=== PATIENT | female | born 1945 | race Caucasian/White ===

== ENCOUNTER → 2021-06-11 | Day surgery (SDC) | payer MEDICARE ==
[2021-06-10 09:55] LABS: BASOPHILS % 0.6 % (0.0-1.0); EOSINOPHILS # (AUTO) 0.1 (0.0-0.4); EOSINOPHILS % 1.7 % (0.0-6.0); HEMOGLOBIN 13.2 g/dL (12.0-16.0); LYMPHOCYTES # (AUTO) 1.8 (1.0-3.2); LYMPHOCYTES % 27.5 % (18.0-39.1); MEAN CORPUSCULAR HEMOGLOBIN 28.3 pg (28-32); MEAN CORPUSCULAR HGB CONC 32.2 g/dL (31-35); MONOCYTES # (AUTO) 0.7 (0.2-0.8); MONOCYTES % 10.4 % (4.4-11.3); NEUTROPHILS # (AUTO) 3.9 (2.1-6.9); NEUTROPHILS % 59.5 % (38.7-80.0); PLATELET COUNT 183 x10e3/uL (140-360); RED BLOOD COUNT 4.66 x10e6/uL (3.6-5.1); RED CELL DISTRIBUTION WIDTH 12.7 % (11.7-14.4)
[2021-06-10 10:22] LABS: ANION GAP 13.5 mmol/L (8-16); CREATININE, SERUM 0.96 mg/dL (0.57-1.11); POTASSIUM 3.5 mmol/L (3.5-5.1)
[~2021-06-11] MED LIST: ACETAMINOPHEN/CODEINE 300MG - 30MG TAB ONE; DIOVAN80 MG PO; FENTANYL CITRATE/PF 100MCG/2 ML INJ ONE; HAIR SKIN AND NAILS PO; HYDROCHLOROTHIA25 MG PO; MULTI-VITAMIN1 EACH PO; Morphine 4mg Syringe 4 MG/ML INJ ONE; ONDANSETRON HCL INJ 2MG/ML 2ML 2 MG/ML VIAL ONE; PRAVASTATIN SOD20 MG; SODIUM CHLORIDE 0.9% 50ML 100 ML ONE; TYLENOL325 M2 PO; VITAMIN B-121000 MCG PO
[2021-06-11 10:50] VITALS: BP 157/83
== END | disposition home or self-care (01) ==
LOC: OR 05:23
PROVIDERS: ATTEND Specialist
DX: S82.042A Displaced comminuted fracture of left patella, initial encounter for closed fracture (principal); I49.3 Ventricular premature depolarization; I10 Essential (primary) hypertension; E78.5 Hyperlipidemia, unspecified; W18.39XA Other fall on same level, initial encounter; Y92.009 Unspecified place in unspecified non-institutional (private) residence as the place of occurrence of the external cause; Z01.810 Encounter for preprocedural cardiovascular examination; Z01.812 Encounter for preprocedural laboratory examination; Z01.818 Encounter for other preprocedural examination; Z20.822 Contact with and (suspected) exposure to COVID-19; Z79.899 Other long term (current) drug therapy; Z68.33 Body mass index [BMI] 33.0-33.9, adult
CPT/HCPCS: 27524; 36415; 71046; 76000; 80048; 85025; 93005; C1713; J0690; J2270; J2405; J3010; U0002

== ENCOUNTER 2021-07-20 11:47 | Inpatient (IN) | payer MEDICARE ==
[~2021-07-20] VITALS: Ht 200.7 cm; Wt 79.4 kg
[~2021-07-20 11:47] MED LIST changes: -ACETAMINOPHEN/CODEINE 300MG - 30MG TAB ONE; -FENTANYL CITRATE/PF 100MCG/2 ML INJ ONE; -Morphine 4mg Syringe 4 MG/ML INJ ONE; -ONDANSETRON HCL INJ 2MG/ML 2ML 2 MG/ML VIAL ONE; -SODIUM CHLORIDE 0.9% 50ML 100 ML ONE
[2021-07-20] MEDS ORDERED: SODIUM CHLORIDE 0.45% 1,000 ML IV SCH (19:45)
[2021-07-20 20:00] VITALS: BP 141/61
[2021-07-20 20:33] LABS: BASOPHILS % 0.2 % (0.0-1.0); EOSINOPHILS % 0.5 % (0.0-6.0); HEMATOCRIT 28.8 % (34.2-44.1); HEMOGLOBIN 8.7 g/dL (12.0-16.0); LYMPHOCYTES # (AUTO) 1.7 (1.0-3.2); LYMPHOCYTES % 28.9 % (18.0-39.1); MEAN CORPUSCULAR HEMOGLOBIN 26.5 pg (28-32); MEAN CORPUSCULAR HGB CONC 30.2 g/dL (31-35); MEAN CORPUSCULAR VOLUME 87.8 fL (81-99); MONOCYTES # (AUTO) 0.4 (0.2-0.8); MONOCYTES % 6.3 % (4.4-11.3); NEUTROPHILS # (AUTO) 3.6 (2.1-6.9); NEUTROPHILS % 62.7 % (38.7-80.0); PLATELET COUNT 156 x10e3/uL (140-360); RED BLOOD COUNT 3.28 x10e6/uL (3.6-5.1); RED CELL DISTRIBUTION WIDTH 14.5 % (11.7-14.4)
[2021-07-20 20:52] LABS: ALBUMIN 1.7 g/dL (3.5-5.0); ALBUMIN/GLOBULIN RATIO 0.4 (0.8-2.0); ANION GAP 13.1 mmol/L (8-16); CALCIUM 8.8 mg/dL (8.4-10.2); CREATININE, SERUM 0.6 mg/dL (0.57-1.11); POTASSIUM 3.1 mmol/L (3.5-5.1)
[2021-07-20 20:59] VITALS: BP 141/61
[2021-07-20] MEDS ORDERED: ONDANSETRON HCL INJ 2MG/ML 2ML 2 MG/ML VIAL IV PRN (21:00)
[2021-07-20] MEDS ORDERED: HYDRALAZINE HCL 20 MG/ML VIAL IV PRN (21:00)
[2021-07-20] MEDS ORDERED: POLYETHYLENE GLYCOL 3350 17 GM PACK PO PRN (21:00)
[2021-07-20] MEDS ORDERED: ACETAMINOPHEN/CODEINE 300MG - 30MG TAB PO PRN (21:15)
[2021-07-20] MEDS: Vancomycin IV 1 GM in SODIUM CHLORIDE 0.9% 250ML 250 ML IV SCH (21:30)
[2021-07-20] MEDS: HYDROCODONE/APAP 5MG-325MG TAB PO PRN (22:05)
[2021-07-20] MEDS: MELATONIN 3 MG TAB PO PRN (22:06)
[2021-07-20 23:11] LABS: CLARITY,URINE CLOUDY (CLEAR); COLOR,URINE YELLOW (YELLOW)
[2021-07-20 23:12] LABS: KETONES,URINE 2+ (NEGATIVE); LEUKOCYTE ESTERASE ,URINE NEGATIVE (NEGATIVE); NITRITE,URINE NEGATIVE (NEGATIVE); PROTEIN,URINE DIPSTICK 1+ (NEGATIVE); URINE UROBILINOGEN 4 mg/dL (0.2 - 1)
[2021-07-20 23:21] LABS: BACTERIA,URINE MANY /HPF; EPITHELIAL CELLS,URINE MANY /LPF; MUCUS,URINE FEW (RARE); TRANSITIONAL EPI CELLS,URINE FEW
[2021-07-20] MEDS: SODIUM CHLORIDE 0.9% 1000ML 1,000 ML IV SCH (23:49)
[2021-07-21] VITALS (9 sets, daily range): BP systolic 119–141; BP diastolic 52–69
[2021-07-21] MEDS: PIPERACILLIN/TAZOBACTAM 3.375 GM in SODIUM CHLORIDE 0.9% 50ML 50 ML IV SCH ×5 (02:50→18:20)
[2021-07-21 05:17] LABS: BASOPHILS % 0.2 % (0.0-1.0); EOSINOPHILS # (AUTO) 0.1 (0.0-0.4); EOSINOPHILS % 1.1 % (0.0-6.0); HEMATOCRIT 26.3 % (34.2-44.1); HEMOGLOBIN 8.2 g/dL (12.0-16.0); LYMPHOCYTES # (AUTO) 1.6 (1.0-3.2); LYMPHOCYTES % 32.9 % (18.0-39.1); MEAN CORPUSCULAR HGB CONC 31.2 g/dL (31-35); MEAN CORPUSCULAR VOLUME 86.5 fL (81-99); MONOCYTES # (AUTO) 0.4 (0.2-0.8); NEUTROPHILS # (AUTO) 2.7 (2.1-6.9); NEUTROPHILS % 56.1 % (38.7-80.0); PLATELET COUNT 145 x10e3/uL (140-360); RED BLOOD COUNT 3.04 x10e6/uL (3.6-5.1); RED CELL DISTRIBUTION WIDTH 14.3 % (11.7-14.4)
[2021-07-21 05:40] LABS: ALBUMIN 1.6 g/dL (3.5-5.0); ALBUMIN/GLOBULIN RATIO 0.4 (0.8-2.0); CALCIUM 8.6 mg/dL (8.4-10.2); CHOL/HDL RATIO 5.7 (3.0-3.6); CREATININE, SERUM 0.58 mg/dL (0.57-1.11); MAGNESIUM 1.9 MG/DL (1.3-2.1); PHOSPHORUS 2.2 MG/DL (2.3-4.7)
[2021-07-21 06:07] LABS: THYROID STIMULATING HORMONE 2.82 uIU/mL (0.350-4.940)
[2021-07-21] MEDS ORDERED: CYCLOBENZAPRIN7.5 MG (07:57)
[2021-07-21] MEDS ORDERED: BENZONATATE150 MG (08:03)
[2021-07-21] MEDS ORDERED: KETOROLAC60 MG/2 ML IV (08:04)
[2021-07-21] MEDS: Vancomycin IV 1 GM in SODIUM CHLORIDE 0.9% 250ML 250 ML IV SCH ×2 (09:23→23:06)
[2021-07-21] MEDS: DOCUSATE SODIUM 100 MG CAP PO SCH ×2 (09:23→18:20)
[2021-07-21] MEDS: FAMOTIDINE 20 MG TAB PO SCH ×2 (09:23→18:20)
[2021-07-21] MEDS ORDERED: POTASSIUM CHLORIDE 20 MEQ TAB CR PO ONE (10:00)
[2021-07-21] MEDS: VALSARTAN 80 MG TAB PO SCH (13:55)
[2021-07-21] MEDS: HYDROCHLOROTHIAZIDE 25 MG TAB PO SCH (13:56)
[2021-07-21] MEDS: MULTIVITAMINS/MINERALS TAB PO SCH (13:56)
[2021-07-21] MEDS: CYANOCOBALAMIN 1,000 MCG TAB PO SCH (13:56)
[2021-07-21] MEDS: SODIUM CHLORIDE 0.9% 1000ML 1,000 ML IV SCH (13:57)
[2021-07-21] MEDS: PRAVASTATIN 20 MG TAB PO SCH (20:37)
[2021-07-21] MEDS: HYDROCODONE/APAP 5MG-325MG TAB PO PRN (20:38)
[2021-07-22] VITALS (7 sets, daily range): BP systolic 129–141; BP diastolic 54–66
[2021-07-22] MEDS: SODIUM CHLORIDE 0.9% 1000ML 1,000 ML IV SCH ×2 (00:40→13:42)
[2021-07-22] MEDS: PIPERACILLIN/TAZOBACTAM 3.375 GM in SODIUM CHLORIDE 0.9% 50ML 50 ML IV SCH ×4 (00:40→18:12)
[2021-07-22 05:06] LABS: BASOPHILS % 0.5 % (0.0-1.0); EOSINOPHILS # (AUTO) 0.1 (0.0-0.4); EOSINOPHILS % 1.6 % (0.0-6.0); HEMATOCRIT 26.9 % (34.2-44.1); HEMOGLOBIN 8.3 g/dL (12.0-16.0); LYMPHOCYTES # (AUTO) 1.6 (1.0-3.2); LYMPHOCYTES % 41.5 % (18.0-39.1); MEAN CORPUSCULAR HEMOGLOBIN 26.9 pg (28-32); MEAN CORPUSCULAR HGB CONC 30.9 g/dL (31-35); MEAN CORPUSCULAR VOLUME 87.1 fL (81-99); MONOCYTES # (AUTO) 0.3 (0.2-0.8); MONOCYTES % 6.6 % (4.4-11.3); NEUTROPHILS # (AUTO) 1.8 (2.1-6.9); NEUTROPHILS % 47.1 % (38.7-80.0); PLATELET COUNT 158 x10e3/uL (140-360); RED BLOOD COUNT 3.09 x10e6/uL (3.6-5.1); RED CELL DISTRIBUTION WIDTH 14.5 % (11.7-14.4)
[2021-07-22 05:30] LABS: CALCIUM 8.5 mg/dL (8.4-10.2); CREATININE, SERUM 0.59 mg/dL (0.57-1.11); PHOSPHORUS 2.5 MG/DL (2.3-4.7)
[2021-07-22] MEDS ORDERED: ONDANSETRON HCL 4 MG ORAL DISINTEGRATING TAB PO PRN (08:00)
[2021-07-22] MEDS ORDERED: POTASSIUM CHLORIDE 20 MEQ TAB CR PO ONE (08:30)
[2021-07-22] MEDS: FAMOTIDINE 20 MG TAB PO SCH ×2 (08:41→18:12)
[2021-07-22] MEDS: DOCUSATE SODIUM 100 MG CAP PO SCH ×2 (08:41→18:12)
[2021-07-22] MEDS: HYDROCHLOROTHIAZIDE 25 MG TAB PO SCH (08:43)
[2021-07-22] MEDS: VALSARTAN 80 MG TAB PO SCH (08:43)
[2021-07-22] MEDS: CYANOCOBALAMIN 1,000 MCG TAB PO SCH (08:44)
[2021-07-22] MEDS: MULTIVITAMINS/MINERALS TAB PO SCH (08:44)
[2021-07-22] MEDS: Vancomycin IV 1 GM in SODIUM CHLORIDE 0.9% 250ML 250 ML IV SCH ×2 (08:45→21:16)
[2021-07-22] MEDS: HYDROCODONE/APAP 5MG-325MG TAB PO PRN (11:29)
[2021-07-22] MEDS: COLLAGENASE 5 GM TUBE TOP SCH (11:53)
[2021-07-22] MEDS: PRAVASTATIN 20 MG TAB PO SCH (21:16)
[2021-07-23] VITALS (8 sets, daily range): BP systolic 129–152; BP diastolic 61–74
[2021-07-23] MEDS: PIPERACILLIN/TAZOBACTAM 3.375 GM in SODIUM CHLORIDE 0.9% 50ML 50 ML IV SCH ×2 (00:37→06:55)
[2021-07-23] MEDS: SODIUM CHLORIDE 0.9% 1000ML 1,000 ML IV SCH ×2 (02:09→16:38)
[2021-07-23 05:03] LABS: BASOPHILS % 0.5 % (0.0-1.0); EOSINOPHILS # (AUTO) 0.1 (0.0-0.4); HEMATOCRIT 26.6 % (34.2-44.1); HEMOGLOBIN 8.2 g/dL (12.0-16.0); LYMPHOCYTES # (AUTO) 1.6 (1.0-3.2); LYMPHOCYTES % 38.3 % (18.0-39.1); MEAN CORPUSCULAR HEMOGLOBIN 26.5 pg (28-32); MEAN CORPUSCULAR HGB CONC 30.8 g/dL (31-35); MEAN CORPUSCULAR VOLUME 85.8 fL (81-99); MONOCYTES # (AUTO) 0.4 (0.2-0.8); MONOCYTES % 8.8 % (4.4-11.3); NEUTROPHILS # (AUTO) 1.9 (2.1-6.9); NEUTROPHILS % 46.7 % (38.7-80.0); PLATELET COUNT 151 x10e3/uL (140-360); RED CELL DISTRIBUTION WIDTH 14.7 % (11.7-14.4)
[2021-07-23 05:28] LABS: ALANINE AMINOTRANSFERASE 31 IU/L (0-55); ALBUMIN 1.6 g/dL (3.5-5.0); ALBUMIN/GLOBULIN RATIO 0.4 (0.8-2.0); ALKALINE PHOSPHATASE 98 IU/L (40-150); ANION GAP 15.9 mmol/L (8-16); CALCIUM 8.3 mg/dL (8.4-10.2); CARBON DIOXIDE 23 mmol/L (22-29); CHLORIDE 104 mmol/L (98-107); CREATININE, SERUM 0.59 mg/dL (0.57-1.11); EST GLOMERULAR FILTRATION RATE 99 ML/MIN (60-); GLUCOSE 87 mg/dL (74-118); SODIUM 140 mmol/L (136-145)
[2021-07-23 05:33] LABS: BUN/CREATININE RATIO 8 (6-25)
[2021-07-23 05:44] LABS: BLOOD UREA NITROGEN < 5 mg/dL (7-26)
[2021-07-23 05:47] LABS: POTASSIUM 2.9 mmol/L (3.5-5.1)
[2021-07-23] MEDS ORDERED: POTASSIUM CHLORIDE 20 MEQ TAB CR PO SCH (09:00)
[2021-07-23] MEDS: DOCUSATE SODIUM 100 MG CAP PO SCH ×2 (10:19→16:38)
[2021-07-23] MEDS: FAMOTIDINE 20 MG TAB PO SCH ×2 (10:19→16:38)
[2021-07-23] MEDS: MULTIVITAMINS/MINERALS TAB PO SCH (10:20)
[2021-07-23] MEDS: CYANOCOBALAMIN 1,000 MCG TAB PO SCH (10:20)
[2021-07-23] MEDS: VALSARTAN 80 MG TAB PO SCH (10:20)
[2021-07-23] MEDS: HYDROCHLOROTHIAZIDE 25 MG TAB PO SCH (10:20)
[2021-07-23] MEDS: COLLAGENASE 5 GM TUBE TOP SCH (10:20)
[2021-07-23] MEDS: Vancomycin IV 1 GM in SODIUM CHLORIDE 0.9% 250ML 250 ML IV SCH (10:59)
[2021-07-23] MEDS: HYDROCODONE/APAP 5MG-325MG TAB PO PRN (11:00)
[2021-07-23] MEDS ORDERED: LIDOCAINE HCL 1% LOCAL INJ 20 ML VIAL ONE (16:34)
[2021-07-23 17:10] LABS: BODY FLUID APPEARANCE TURBID; BODY FLUID COLOR RED; BODY FLUID TYPE SYNOVIAL
[2021-07-23 17:21] LABS: RBC,BODY FLUID 122000 cells/uL; WBC,BODY FLUID 332 cells/uL
[2021-07-23] MEDS: RIVAROXABAN 10 MG TABLET PO SCH (17:41)
[2021-07-23 17:58] LABS: LYMPHOCYTES,BODY FLUID 10 %; MONO/MACROPHG,BODY FLUID 5 %; NEUTROPHILS,BODY FLUID 85 %
[2021-07-23] MEDS: PRAVASTATIN 20 MG TAB PO SCH (21:51)
[2021-07-24] VITALS (8 sets, daily range): BP systolic 141–157; BP diastolic 49–70
[2021-07-24] MEDS: SODIUM CHLORIDE 0.9% 1000ML 1,000 ML IV SCH ×4 (05:15→21:29)
[2021-07-24 06:08] LABS: BASOPHILS % 0.4 % (0.0-1.0); EOSINOPHILS # (AUTO) 0.1 (0.0-0.4); EOSINOPHILS % 1.2 % (0.0-6.0); HEMATOCRIT 28.6 % (34.2-44.1); LYMPHOCYTES # (AUTO) 1.9 (1.0-3.2); LYMPHOCYTES % 39.4 % (18.0-39.1); MEAN CORPUSCULAR HEMOGLOBIN 26.5 pg (28-32); MEAN CORPUSCULAR HGB CONC 31.5 g/dL (31-35); MEAN CORPUSCULAR VOLUME 84.4 fL (81-99); MONOCYTES # (AUTO) 0.4 (0.2-0.8); MONOCYTES % 8.2 % (4.4-11.3); NEUTROPHILS # (AUTO) 2.3 (2.1-6.9); NEUTROPHILS % 46.7 % (38.7-80.0); PLATELET COUNT 151 x10e3/uL (140-360); RED BLOOD COUNT 3.39 x10e6/uL (3.6-5.1)
[2021-07-24 06:52] LABS: ANION GAP 17.3 mmol/L (8-16); CALCIUM 8.7 mg/dL (8.4-10.2); CARBON DIOXIDE 23 mmol/L (22-29); CHLORIDE 101 mmol/L (98-107); CREATININE, SERUM 0.57 mg/dL (0.57-1.11); EST GLOMERULAR FILTRATION RATE 103 ML/MIN (60-); GLUCOSE 75 mg/dL (74-118); POTASSIUM 3.3 mmol/L (3.5-5.1); SODIUM 138 mmol/L (136-145)
[2021-07-24 06:54] LABS: BUN/CREATININE RATIO 9 (6-25)
[2021-07-24 07:09] LABS: BLOOD UREA NITROGEN < 5 mg/dL (7-26)
[2021-07-24] MEDS: FAMOTIDINE 20 MG TAB PO SCH ×2 (08:43→16:42)
[2021-07-24] MEDS: DOCUSATE SODIUM 100 MG CAP PO SCH ×2 (08:43→16:42)
[2021-07-24] MEDS: CYANOCOBALAMIN 1,000 MCG TAB PO SCH (08:44)
[2021-07-24] MEDS: VALSARTAN 80 MG TAB PO SCH (08:44)
[2021-07-24] MEDS: HYDROCHLOROTHIAZIDE 25 MG TAB PO SCH (08:44)
[2021-07-24] MEDS: MULTIVITAMINS/MINERALS TAB PO SCH (08:44)
[2021-07-24] MEDS: COLLAGENASE 5 GM TUBE TOP SCH (09:55)
[2021-07-24] MEDS ORDERED: BENZOCAINE 20% SPR 60 ML CAN ONE (11:49)
[2021-07-24] MEDS ORDERED: SODIUM CHLORIDE 0.9% 1000ML 1,000 ML ONE (11:49)
[2021-07-24] MEDS ORDERED: PROPOFOL IV EMULSION 10 MG/ML 20 ML VIAL ONE (12:34)
[2021-07-24] MEDS ORDERED: POVIDONE IODINE 0.05% 0.05 % ML PO ONE (12:34)
[2021-07-24] MEDS: RIVAROXABAN 10 MG TABLET PO SCH (16:42)
[2021-07-24] MEDS: HYDROCODONE/APAP 5MG-325MG TAB PO PRN (18:01)
[2021-07-24] MEDS: PRAVASTATIN 20 MG TAB PO SCH (21:29)
[2021-07-25] VITALS (7 sets, daily range): BP systolic 119–145; BP diastolic 57–67
[2021-07-25] MEDS: SODIUM CHLORIDE 0.9% 1000ML 1,000 ML IV SCH ×2 (03:43→06:34)
[2021-07-25 05:52] LABS: BASOPHILS % 0.4 % (0.0-1.0); EOSINOPHILS # (AUTO) 0.1 (0.0-0.4); EOSINOPHILS % 0.9 % (0.0-6.0); HEMATOCRIT 29.6 % (34.2-44.1); HEMOGLOBIN 9.1 g/dL (12.0-16.0); LYMPHOCYTES # (AUTO) 2.2 (1.0-3.2); MEAN CORPUSCULAR HEMOGLOBIN 26.4 pg (28-32); MEAN CORPUSCULAR HGB CONC 30.7 g/dL (31-35); MEAN CORPUSCULAR VOLUME 85.8 fL (81-99); MONOCYTES # (AUTO) 0.4 (0.2-0.8); NEUTROPHILS # (AUTO) 2.7 (2.1-6.9); NEUTROPHILS % 48.6 % (38.7-80.0); PLATELET COUNT 147 x10e3/uL (140-360); RED BLOOD COUNT 3.45 x10e6/uL (3.6-5.1); RED CELL DISTRIBUTION WIDTH 15.2 % (11.7-14.4)
[2021-07-25 06:21] LABS: ALANINE AMINOTRANSFERASE 26 IU/L (0-55); ALBUMIN 1.7 g/dL (3.5-5.0); ALBUMIN/GLOBULIN RATIO 0.4 (0.8-2.0); ALKALINE PHOSPHATASE 84 IU/L (40-150); ANION GAP 17.9 mmol/L (8-16); BLOOD UREA NITROGEN < 5 mg/dL (7-26); CALCIUM 8.8 mg/dL (8.4-10.2); CARBON DIOXIDE 26 mmol/L (22-29); CHLORIDE 99 mmol/L (98-107); CREATININE, SERUM 0.57 mg/dL (0.57-1.11); EST GLOMERULAR FILTRATION RATE 103 ML/MIN (60-); GLUCOSE 87 mg/dL (74-118); SODIUM 140 mmol/L (136-145)
[2021-07-25 06:27] LABS: BUN/CREATININE RATIO 9 (6-25)
[2021-07-25 06:29] LABS: POTASSIUM 2.9 mmol/L (3.5-5.1)
[2021-07-25] MEDS ORDERED: POTASSIUM CHLORIDE 20 MEQ TAB CR PO ONE (09:00)
[2021-07-25] MEDS: DOCUSATE SODIUM 100 MG CAP PO SCH ×2 (09:40→16:03)
[2021-07-25] MEDS: VALSARTAN 80 MG TAB PO SCH (09:40)
[2021-07-25] MEDS: FAMOTIDINE 20 MG TAB PO SCH ×2 (09:40→16:03)
[2021-07-25] MEDS: HYDROCHLOROTHIAZIDE 25 MG TAB PO SCH (09:41)
[2021-07-25] MEDS: MULTIVITAMINS/MINERALS TAB PO SCH (09:41)
[2021-07-25] MEDS: CYANOCOBALAMIN 1,000 MCG TAB PO SCH (09:41)
[2021-07-25] MEDS: COLLAGENASE 5 GM TUBE TOP SCH (10:37)
[2021-07-25] MEDS ORDERED: SODIUM CHLORIDE 0.9% 250ML 250 ML ONE (12:56)
[2021-07-25] MEDS: RIVAROXABAN 10 MG TABLET PO SCH (16:03)
[2021-07-25] MEDS: PRAVASTATIN 20 MG TAB PO SCH (20:20)
[2021-07-25] MEDS: ACETAMINOPHEN 325 MG TAB PO PRN (20:26)
[2021-07-25] MEDS: MELATONIN 3 MG TAB PO PRN (21:50)
[2021-07-26] VITALS (7 sets, daily range): BP systolic 114–140; BP diastolic 43–60
[2021-07-26 06:42] LABS: BASOPHILS % 0.4 % (0.0-1.0); EOSINOPHILS # (AUTO) 0.1 (0.0-0.4); EOSINOPHILS % 1.1 % (0.0-6.0); HEMATOCRIT 28.6 % (34.2-44.1); LYMPHOCYTES # (AUTO) 1.7 (1.0-3.2); LYMPHOCYTES % 35.2 % (18.0-39.1); MEAN CORPUSCULAR HEMOGLOBIN 26.5 pg (28-32); MEAN CORPUSCULAR HGB CONC 31.5 g/dL (31-35); MEAN CORPUSCULAR VOLUME 84.1 fL (81-99); MONOCYTES # (AUTO) 0.4 (0.2-0.8); MONOCYTES % 9.3 % (4.4-11.3); NEUTROPHILS # (AUTO) 2.4 (2.1-6.9); NEUTROPHILS % 50.2 % (38.7-80.0); PLATELET COUNT 140 x10e3/uL (140-360); RED CELL DISTRIBUTION WIDTH 15.6 % (11.7-14.4)
[2021-07-26 07:18] LABS: ALANINE AMINOTRANSFERASE 19 IU/L (0-55); ALBUMIN 1.7 g/dL (3.5-5.0); ALBUMIN/GLOBULIN RATIO 0.4 (0.8-2.0); ALKALINE PHOSPHATASE 79 IU/L (40-150); ANION GAP 17.1 mmol/L (8-16); BLOOD UREA NITROGEN < 5 mg/dL (7-26); CALCIUM 8.9 mg/dL (8.4-10.2); CARBON DIOXIDE 26 mmol/L (22-29); CHLORIDE 98 mmol/L (98-107); CREATININE, SERUM 0.49 mg/dL (0.57-1.11); EST GLOMERULAR FILTRATION RATE 122 ML/MIN (60-); GLUCOSE 99 mg/dL (74-118); POTASSIUM 3.1 mmol/L (3.5-5.1); SODIUM 138 mmol/L (136-145)
[2021-07-26 07:20] LABS: BUN/CREATININE RATIO 10 (6-25)
[2021-07-26] MEDS: CYANOCOBALAMIN 1,000 MCG TAB PO SCH (09:19)
[2021-07-26] MEDS: DOCUSATE SODIUM 100 MG CAP PO SCH ×2 (09:19→16:21)
[2021-07-26] MEDS: HYDROCHLOROTHIAZIDE 25 MG TAB PO SCH (09:19)
[2021-07-26] MEDS: FAMOTIDINE 20 MG TAB PO SCH ×2 (09:19→16:21)
[2021-07-26] MEDS: VALSARTAN 80 MG TAB PO SCH (09:19)
[2021-07-26] MEDS: MULTIVITAMINS/MINERALS TAB PO SCH (09:19)
[2021-07-26] MEDS: COLLAGENASE 5 GM TUBE TOP SCH (09:20)
[2021-07-26] MEDS ORDERED: POTASSIUM CHLORIDE 20 MEQ TAB CR PO NR (11:30)
[2021-07-26] MEDS: RIVAROXABAN 10 MG TABLET PO SCH (16:21)
[2021-07-26] MEDS: PRAVASTATIN 20 MG TAB PO SCH (21:20)
[2021-07-27] VITALS (9 sets, daily range): BP systolic 119–147; BP diastolic 52–68
[2021-07-27 07:36] LABS: BASOPHILS % 0.6 % (0.0-1.0); EOSINOPHILS % 0.6 % (0.0-6.0); HEMATOCRIT 28.7 % (34.2-44.1); HEMOGLOBIN 8.8 g/dL (12.0-16.0); MEAN CORPUSCULAR HEMOGLOBIN 26.7 pg (28-32); MEAN CORPUSCULAR HGB CONC 30.7 g/dL (31-35); MONOCYTES # (AUTO) 0.5 (0.2-0.8); MONOCYTES % 9.4 % (4.4-11.3); NEUTROPHILS # (AUTO) 2.7 (2.1-6.9); NEUTROPHILS % 50.5 % (38.7-80.0); PLATELET COUNT 141 x10e3/uL (140-360); RED CELL DISTRIBUTION WIDTH 15.9 % (11.7-14.4)
[2021-07-27 08:01] LABS: ALANINE AMINOTRANSFERASE 18 IU/L (0-55); ALBUMIN 1.8 g/dL (3.5-5.0); ALBUMIN/GLOBULIN RATIO 0.4 (0.8-2.0); ALKALINE PHOSPHATASE 77 IU/L (40-150); ANION GAP 14.7 mmol/L (8-16); BLOOD UREA NITROGEN < 5 mg/dL (7-26); BUN/CREATININE RATIO 9 (6-25); CALCIUM 9.2 mg/dL (8.4-10.2); CARBON DIOXIDE 30 mmol/L (22-29); CHLORIDE 96 mmol/L (98-107); CREATININE, SERUM 0.58 mg/dL (0.57-1.11); EST GLOMERULAR FILTRATION RATE 101 ML/MIN (60-); GLUCOSE 100 mg/dL (74-118); POTASSIUM 3.7 mmol/L (3.5-5.1); SODIUM 137 mmol/L (136-145)
[2021-07-27] MEDS: CYANOCOBALAMIN 1,000 MCG TAB PO SCH (10:32)
[2021-07-27] MEDS: VALSARTAN 80 MG TAB PO SCH (10:32)
[2021-07-27] MEDS: DOCUSATE SODIUM 100 MG CAP PO SCH ×2 (10:33→17:04)
[2021-07-27] MEDS: MULTIVITAMINS/MINERALS TAB PO SCH (10:33)
[2021-07-27] MEDS: FAMOTIDINE 20 MG TAB PO SCH ×2 (10:33→17:04)
[2021-07-27] MEDS: COLLAGENASE 5 GM TUBE TOP SCH (10:35)
[2021-07-27] MEDS: HYDROCHLOROTHIAZIDE 25 MG TAB PO SCH (10:35)
[2021-07-27] MEDS: RIVAROXABAN 10 MG TABLET PO SCH (17:04)
[2021-07-27] MEDS: PRAVASTATIN 20 MG TAB PO SCH (22:09)
[2021-07-28] VITALS (7 sets, daily range): BP systolic 113–136; BP diastolic 48–59
[2021-07-28 06:26] LABS: BASOPHILS % 0.6 % (0.0-1.0); EOSINOPHILS # (AUTO) 0.1 (0.0-0.4); EOSINOPHILS % 1.2 % (0.0-6.0); HEMATOCRIT 28.9 % (34.2-44.1); HEMOGLOBIN 8.8 g/dL (12.0-16.0); LYMPHOCYTES # (AUTO) 2.1 (1.0-3.2); LYMPHOCYTES % 40.8 % (18.0-39.1); MEAN CORPUSCULAR HEMOGLOBIN 26.7 pg (28-32); MEAN CORPUSCULAR HGB CONC 30.4 g/dL (31-35); MEAN CORPUSCULAR VOLUME 87.8 fL (81-99); MONOCYTES # (AUTO) 0.6 (0.2-0.8); MONOCYTES % 10.6 % (4.4-11.3); NEUTROPHILS # (AUTO) 2.3 (2.1-6.9); NEUTROPHILS % 45.1 % (38.7-80.0); PLATELET COUNT 161 x10e3/uL (140-360); RED BLOOD COUNT 3.29 x10e6/uL (3.6-5.1); RED CELL DISTRIBUTION WIDTH 15.9 % (11.7-14.4)
[2021-07-28 07:17] LABS: ALBUMIN 1.8 g/dL (3.5-5.0); ALBUMIN/GLOBULIN RATIO 0.4 (0.8-2.0); ANION GAP 14.3 mmol/L (8-16); CALCIUM 8.7 mg/dL (8.4-10.2); CREATININE, SERUM 0.57 mg/dL (0.57-1.11); POTASSIUM 3.3 mmol/L (3.5-5.1)
[2021-07-28] MEDS: DOCUSATE SODIUM 100 MG CAP PO SCH ×2 (09:20→17:38)
[2021-07-28] MEDS: FAMOTIDINE 20 MG TAB PO SCH ×2 (09:20→17:00)
[2021-07-28] MEDS: HYDROCHLOROTHIAZIDE 25 MG TAB PO SCH (09:21)
[2021-07-28] MEDS: VALSARTAN 80 MG TAB PO SCH (09:21)
[2021-07-28] MEDS: MULTIVITAMINS/MINERALS TAB PO SCH (09:21)
[2021-07-28] MEDS: CYANOCOBALAMIN 1,000 MCG TAB PO SCH (09:22)
[2021-07-28] MEDS ORDERED: POTASSIUM CHLORIDE 20 MEQ TAB CR PO ONE ×2 (12:45→16:30)
[2021-07-28] MEDS: RIVAROXABAN 10 MG TABLET PO SCH (17:38)
[2021-07-28] MEDS ORDERED: SIMETHICONE 80 MG CHEW PO PRN (17:45)
[2021-07-28] MEDS: PRAVASTATIN 20 MG TAB PO SCH (21:16)
[2021-07-29 04:00] VITALS: BP 118/51
[2021-07-29 07:54] VITALS: BP 114/45
[2021-07-29] MEDS: FAMOTIDINE 20 MG TAB PO SCH ×2 (08:41→16:08)
[2021-07-29] MEDS: DOCUSATE SODIUM 100 MG CAP PO SCH ×2 (08:41→16:08)
[2021-07-29] MEDS: HYDROCHLOROTHIAZIDE 25 MG TAB PO SCH (08:42)
[2021-07-29] MEDS: VALSARTAN 80 MG TAB PO SCH (08:42)
[2021-07-29] MEDS: MULTIVITAMINS/MINERALS TAB PO SCH (08:43)
[2021-07-29] MEDS: CYANOCOBALAMIN 1,000 MCG TAB PO SCH (08:43)
[2021-07-29] MEDS ORDERED: POTASSIUM CHLORIDE 20 MEQ TAB CR PO NR (11:38)
[2021-07-29] MEDS: BALSAM PERU/CASTOR OIL 60 GM OINT...G. TP SCH (14:40)
[2021-07-29] MEDS: COLLAGENASE 5 GM TUBE TOP SCH (14:45)
[2021-07-29] MEDS: RIVAROXABAN 10 MG TABLET PO SCH (16:08)
[2021-07-29 20:06] VITALS: BP 125/50
[2021-07-29 20:32] VITALS: BP 125/50
[2021-07-29] MEDS: PRAVASTATIN 20 MG TAB PO SCH (21:03)
[2021-07-29] MEDS ORDERED: SODIUM CHLORIDE 0.9% 250ML 250 ML ONE (23:21)
[2021-07-30] VITALS (8 sets, daily range): BP systolic 115–143; BP diastolic 46–72
[2021-07-30 05:03] LABS: BASOPHILS % 0.5 % (0.0-1.0); EOSINOPHILS # (AUTO) 0.1 (0.0-0.4); EOSINOPHILS % 1.2 % (0.0-6.0); HEMATOCRIT 27.6 % (34.2-44.1); HEMOGLOBIN 8.3 g/dL (12.0-16.0); LYMPHOCYTES # (AUTO) 1.9 (1.0-3.2); LYMPHOCYTES % 46.2 % (18.0-39.1); MEAN CORPUSCULAR HEMOGLOBIN 26.2 pg (28-32); MEAN CORPUSCULAR HGB CONC 30.1 g/dL (31-35); MEAN CORPUSCULAR VOLUME 87.1 fL (81-99); MONOCYTES # (AUTO) 0.4 (0.2-0.8); MONOCYTES % 8.7 % (4.4-11.3); NEUTROPHILS # (AUTO) 1.7 (2.1-6.9); NEUTROPHILS % 41.5 % (38.7-80.0); PLATELET COUNT 144 x10e3/uL (140-360); RED BLOOD COUNT 3.17 x10e6/uL (3.6-5.1); RED CELL DISTRIBUTION WIDTH 16.1 % (11.7-14.4)
[2021-07-30 05:35] LABS: ALBUMIN 1.7 g/dL (3.5-5.0); ALBUMIN/GLOBULIN RATIO 0.4 (0.8-2.0); ANION GAP 14.2 mmol/L (8-16); CALCIUM 8.9 mg/dL (8.4-10.2); CREATININE, SERUM 0.52 mg/dL (0.57-1.11); POTASSIUM 4.2 mmol/L (3.5-5.1)
[2021-07-30] MEDS: DOCUSATE SODIUM 100 MG CAP PO SCH ×2 (08:30→16:12)
[2021-07-30] MEDS: FAMOTIDINE 20 MG TAB PO SCH ×2 (08:30→16:12)
[2021-07-30] MEDS: MULTIVITAMINS/MINERALS TAB PO SCH (08:31)
[2021-07-30] MEDS: HYDROCHLOROTHIAZIDE 25 MG TAB PO SCH (08:31)
[2021-07-30] MEDS: VALSARTAN 80 MG TAB PO SCH (08:31)
[2021-07-30] MEDS: CYANOCOBALAMIN 1,000 MCG TAB PO SCH (08:31)
[2021-07-30] MEDS: BALSAM PERU/CASTOR OIL 60 GM OINT...G. TP SCH (09:06)
[2021-07-30] MEDS: COLLAGENASE 5 GM TUBE TOP SCH (09:06)
[2021-07-30] MEDS: RIVAROXABAN 10 MG TABLET PO SCH (16:12)
[2021-07-30] MEDS: ACETAMINOPHEN 325 MG TAB PO PRN (17:55)
[2021-07-30] MEDS: PRAVASTATIN 20 MG TAB PO SCH (21:49)
[2021-07-31] VITALS (8 sets, daily range): BP systolic 117–133; BP diastolic 53–63
[2021-07-31 05:43] LABS: FERRITIN 624.24 ng/mL (4.63-204.00)
[2021-07-31] MEDS: FAMOTIDINE 20 MG TAB PO SCH ×2 (08:25→16:30)
[2021-07-31] MEDS: DOCUSATE SODIUM 100 MG CAP PO SCH ×2 (09:11→17:00)
[2021-07-31] MEDS: VALSARTAN 80 MG TAB PO SCH (09:11)
[2021-07-31] MEDS: MULTIVITAMINS/MINERALS TAB PO SCH (09:11)
[2021-07-31] MEDS: HYDROCHLOROTHIAZIDE 25 MG TAB PO SCH (09:11)
[2021-07-31] MEDS: CYANOCOBALAMIN 1,000 MCG TAB PO SCH (09:11)
[2021-07-31] MEDS: BALSAM PERU/CASTOR OIL 60 GM OINT...G. TP SCH (11:00)
[2021-07-31] MEDS: COLLAGENASE 5 GM TUBE TOP SCH (11:00)
[2021-07-31] MEDS: PRAVASTATIN 20 MG TAB PO SCH (21:25)
[2021-07-31] MEDS: MELATONIN 3 MG TAB PO PRN (21:25)
[2021-08-01] VITALS (7 sets, daily range): BP systolic 111–129; BP diastolic 48–68
[2021-08-01 05:58] LABS: BASOPHILS % 0.4 % (0.0-1.0); EOSINOPHILS # (AUTO) 0.1 (0.0-0.4); EOSINOPHILS % 1.2 % (0.0-6.0); HEMATOCRIT 28.2 % (34.2-44.1); HEMOGLOBIN 8.4 g/dL (12.0-16.0); LYMPHOCYTES # (AUTO) 2.4 (1.0-3.2); LYMPHOCYTES % 48.1 % (18.0-39.1); MEAN CORPUSCULAR HEMOGLOBIN 26.8 pg (28-32); MEAN CORPUSCULAR HGB CONC 29.8 g/dL (31-35); MEAN CORPUSCULAR VOLUME 89.8 fL (81-99); MONOCYTES # (AUTO) 0.5 (0.2-0.8); NEUTROPHILS # (AUTO) 1.9 (2.1-6.9); NEUTROPHILS % 38.7 % (38.7-80.0); PLATELET COUNT 153 x10e3/uL (140-360); RED BLOOD COUNT 3.14 x10e6/uL (3.6-5.1); RED CELL DISTRIBUTION WIDTH 16.5 % (11.7-14.4)
[2021-08-01 06:26] LABS: ANION GAP 12.5 mmol/L (8-16); CALCIUM 8.5 mg/dL (8.4-10.2); CREATININE, SERUM 0.53 mg/dL (0.57-1.11); POTASSIUM 3.5 mmol/L (3.5-5.1)
[2021-08-01] MEDS: MULTIVITAMINS/MINERALS TAB PO SCH (08:28)
[2021-08-01] MEDS: DOCUSATE SODIUM 100 MG CAP PO SCH ×2 (08:28→16:59)
[2021-08-01] MEDS: HYDROCHLOROTHIAZIDE 25 MG TAB PO SCH (08:28)
[2021-08-01] MEDS: CYANOCOBALAMIN 1,000 MCG TAB PO SCH (08:28)
[2021-08-01] MEDS: VALSARTAN 80 MG TAB PO SCH (08:28)
[2021-08-01] MEDS: FAMOTIDINE 20 MG TAB PO SCH ×2 (08:28→16:59)
[2021-08-01] MEDS: COLLAGENASE 5 GM TUBE TOP SCH (11:00)
[2021-08-01] MEDS: BALSAM PERU/CASTOR OIL 60 GM OINT...G. TP SCH (11:00)
[2021-08-01] MEDS: RIVAROXABAN 10 MG TABLET PO SCH (16:59)
[2021-08-01] MEDS: HYDROCODONE/APAP 5MG-325MG TAB PO PRN (17:40)
[2021-08-01] MEDS: PRAVASTATIN 20 MG TAB PO SCH (20:54)
[2021-08-02] VITALS (8 sets, daily range): BP systolic 108–135; BP diastolic 54–66
[2021-08-02] MEDS: HYDROCHLOROTHIAZIDE 25 MG TAB PO SCH (08:55)
[2021-08-02] MEDS: VALSARTAN 80 MG TAB PO SCH (08:55)
[2021-08-02] MEDS: FAMOTIDINE 20 MG TAB PO SCH ×2 (08:55→16:19)
[2021-08-02] MEDS: DOCUSATE SODIUM 100 MG CAP PO SCH ×2 (08:55→16:19)
[2021-08-02] MEDS: MULTIVITAMINS/MINERALS TAB PO SCH (08:56)
[2021-08-02] MEDS: CYANOCOBALAMIN 1,000 MCG TAB PO SCH (08:56)
[2021-08-02] MEDS: COLLAGENASE 5 GM TUBE TOP SCH (08:56)
[2021-08-02] MEDS: BALSAM PERU/CASTOR OIL 60 GM OINT...G. TP SCH (08:56)
[2021-08-02] MEDS: RIVAROXABAN 10 MG TABLET PO SCH (16:19)
[2021-08-02] MEDS: PRAVASTATIN 20 MG TAB PO SCH (21:28)
[2021-08-03] VITALS (8 sets, daily range): BP systolic 96–132; BP diastolic 50–60
[2021-08-03 06:28] LABS: BASOPHILS % 0.7 % (0.0-1.0); EOSINOPHILS # (AUTO) 0.1 (0.0-0.4); EOSINOPHILS % 1.1 % (0.0-6.0); HEMATOCRIT 27.5 % (34.2-44.1); HEMOGLOBIN 8.4 g/dL (12.0-16.0); LYMPHOCYTES # (AUTO) 2.3 (1.0-3.2); LYMPHOCYTES % 51.6 % (18.0-39.1); MEAN CORPUSCULAR HEMOGLOBIN 27.1 pg (28-32); MEAN CORPUSCULAR HGB CONC 30.5 g/dL (31-35); MEAN CORPUSCULAR VOLUME 88.7 fL (81-99); MONOCYTES # (AUTO) 0.4 (0.2-0.8); MONOCYTES % 9.3 % (4.4-11.3); NEUTROPHILS # (AUTO) 1.6 (2.1-6.9); PLATELET COUNT 148 x10e3/uL (140-360); RED CELL DISTRIBUTION WIDTH 17.1 % (11.7-14.4)
[2021-08-03 06:41] LABS: ANION GAP 13.2 mmol/L (8-16); CALCIUM 8.5 mg/dL (8.4-10.2); CREATININE, SERUM 0.53 mg/dL (0.57-1.11); POTASSIUM 3.2 mmol/L (3.5-5.1)
[2021-08-03] MEDS ORDERED: POTASSIUM CHLORIDE 20 MEQ TAB CR PO STA (06:46)
[2021-08-03] MEDS: BALSAM PERU/CASTOR OIL 60 GM OINT...G. TP SCH (09:00)
[2021-08-03] MEDS: COLLAGENASE 5 GM TUBE TOP SCH (09:00)
[2021-08-03] MEDS: FAMOTIDINE 20 MG TAB PO SCH ×2 (09:16→17:16)
[2021-08-03] MEDS: DOCUSATE SODIUM 100 MG CAP PO SCH ×2 (09:16→17:16)
[2021-08-03] MEDS: VALSARTAN 80 MG TAB PO SCH (09:18)
[2021-08-03] MEDS: MULTIVITAMINS/MINERALS TAB PO SCH (09:19)
[2021-08-03] MEDS: HYDROCHLOROTHIAZIDE 25 MG TAB PO SCH (09:19)
[2021-08-03] MEDS: CYANOCOBALAMIN 1,000 MCG TAB PO SCH (09:19)
[2021-08-03] MEDS: ACETAMINOPHEN 325 MG TAB PO PRN (11:23)
[2021-08-03] MEDS: HYDROCODONE/APAP 5MG-325MG TAB PO PRN (11:25)
[2021-08-03] MEDS ORDERED: Vancomycin IV 1 GM in SODIUM CHLORIDE 0.9% 250ML 250 ML IV ONE (13:00)
[2021-08-03] MEDS: RIVAROXABAN 10 MG TABLET PO SCH (17:00)
[2021-08-03] MEDS: PRAVASTATIN 20 MG TAB PO SCH (20:55)
[2021-08-04] VITALS (7 sets, daily range): BP systolic 92–140; BP diastolic 54–69
[2021-08-04] MEDS ORDERED: SODIUM CHLORIDE 0.9% 1000ML 1,000 ML IV SCH
[2021-08-04 05:24] LABS: BASOPHILS % 0.7 % (0.0-1.0); EOSINOPHILS # (AUTO) 0.1 (0.0-0.4); EOSINOPHILS % 1.5 % (0.0-6.0); HEMATOCRIT 26.8 % (34.2-44.1); HEMOGLOBIN 8.1 g/dL (12.0-16.0); LYMPHOCYTES # (AUTO) 2.2 (1.0-3.2); LYMPHOCYTES % 47.6 % (18.0-39.1); MEAN CORPUSCULAR HEMOGLOBIN 26.6 pg (28-32); MEAN CORPUSCULAR HGB CONC 30.2 g/dL (31-35); MEAN CORPUSCULAR VOLUME 88.2 fL (81-99); MONOCYTES # (AUTO) 0.4 (0.2-0.8); MONOCYTES % 8.6 % (4.4-11.3); NEUTROPHILS # (AUTO) 1.8 (2.1-6.9); NEUTROPHILS % 39.4 % (38.7-80.0); PLATELET COUNT 139 x10e3/uL (140-360); RED BLOOD COUNT 3.04 x10e6/uL (3.6-5.1)
[2021-08-04 05:50] LABS: ALBUMIN 1.8 g/dL (3.5-5.0); ALBUMIN/GLOBULIN RATIO 0.5 (0.8-2.0); ALKALINE PHOSPHATASE 62 IU/L (40-150); ANION GAP 13.8 mmol/L (8-16); BLOOD UREA NITROGEN 5 mg/dL (7-26); BUN/CREATININE RATIO 10 (6-25); CALCIUM 8.1 mg/dL (8.4-10.2); CARBON DIOXIDE 27 mmol/L (22-29); CHLORIDE 100 mmol/L (98-107); CREATININE, SERUM 0.52 mg/dL (0.57-1.11); EST GLOMERULAR FILTRATION RATE 114 ML/MIN (60-); GLUCOSE 94 mg/dL (74-118); POTASSIUM 3.8 mmol/L (3.5-5.1); SODIUM 137 mmol/L (136-145)
[2021-08-04 06:43] LABS: ALANINE AMINOTRANSFERASE < 6 IU/L (0-55)
[2021-08-04] MEDS: FAMOTIDINE 20 MG TAB PO SCH ×2 (07:30→16:30)
[2021-08-04] MEDS: DOCUSATE SODIUM 100 MG CAP PO SCH ×2 (08:15→16:30)
[2021-08-04] MEDS: COLLAGENASE 5 GM TUBE TOP SCH (08:40)
[2021-08-04] MEDS: BALSAM PERU/CASTOR OIL 60 GM OINT...G. TP SCH (08:40)
[2021-08-04] MEDS ORDERED: FENTANYL CITRATE/PF 100MCG/2 ML INJ ONE (12:14)
[2021-08-04] MEDS ORDERED: SEVOFLURANE INHAL SOLN 250 ML PEN BTL ONE (13:26)
[2021-08-04] MEDS ORDERED: GLYCOPYRROLATE INJ 0.2 MG/ML VIAL ONE (13:26)
[2021-08-04] MEDS ORDERED: DEXAMETHASONE SOD PHOS INJ 4 MG/ML SDV ONE (13:26)
[2021-08-04] MEDS ORDERED: LIDOCAINE HCL 2% LOCAL INJ 5 ML SDV VIAL INJ ONE (13:26)
[2021-08-04] MEDS ORDERED: KETOROLAC TROMETHAMINE 30 MG/ML VIAL ONE (13:26)
[2021-08-04] MEDS ORDERED: PROPOFOL IV EMULSION 10 MG/ML 20 ML VIAL ONE (13:26)
[2021-08-04] MEDS ORDERED: POVIDONE IODINE 0.05% 0.05 % ML PO ONE (13:26)
[2021-08-04] MEDS ORDERED: ONDANSETRON HCL INJ 2MG/ML 2ML 2 MG/ML VIAL ONE (13:26)
[2021-08-04] MEDS ORDERED: Vancomycin IV 500 MG ONE (14:09)
[2021-08-04] MEDS ORDERED: ACETAMINOPHEN 1000 MG/100 ML 100 ML IV ONE (14:49)
[2021-08-04] MEDS: VALSARTAN 80 MG TAB PO SCH (16:30)
[2021-08-04] MEDS: MULTIVITAMINS/MINERALS TAB PO SCH (16:30)
[2021-08-04] MEDS: SODIUM CHLORIDE 0.9% 1000ML 1,000 ML IV SCH (16:30)
[2021-08-04] MEDS: CYANOCOBALAMIN 1,000 MCG TAB PO SCH (16:30)
[2021-08-04] MEDS: HYDROCHLOROTHIAZIDE 25 MG TAB PO SCH (16:30)
[2021-08-04] MEDS: PRAVASTATIN 20 MG TAB PO SCH (21:24)
[2021-08-05] VITALS (8 sets, daily range): BP systolic 115–127; BP diastolic 47–73
[2021-08-05] MEDS: SODIUM CHLORIDE 0.9% 1000ML 1,000 ML IV SCH ×3 (01:38→21:11)
[2021-08-05 05:14] LABS: BASOPHILS % 0.1 % (0.0-1.0); EOSINOPHILS % 0.3 % (0.0-6.0); HEMATOCRIT 27.9 % (34.2-44.1); HEMOGLOBIN 8.5 g/dL (12.0-16.0); LYMPHOCYTES # (AUTO) 3.1 (1.0-3.2); LYMPHOCYTES % 44.4 % (18.0-39.1); MEAN CORPUSCULAR HEMOGLOBIN 26.9 pg (28-32); MEAN CORPUSCULAR HGB CONC 30.5 g/dL (31-35); MEAN CORPUSCULAR VOLUME 88.3 fL (81-99); MONOCYTES # (AUTO) 0.5 (0.2-0.8); MONOCYTES % 7.6 % (4.4-11.3); NEUTROPHILS # (AUTO) 3.2 (2.1-6.9); NEUTROPHILS % 45.9 % (38.7-80.0); PLATELET COUNT 174 x10e3/uL (140-360); RED BLOOD COUNT 3.16 x10e6/uL (3.6-5.1); RED CELL DISTRIBUTION WIDTH 17.2 % (11.7-14.4)
[2021-08-05 05:43] LABS: ALBUMIN 1.8 g/dL (3.5-5.0); ALBUMIN/GLOBULIN RATIO 0.4 (0.8-2.0); ALKALINE PHOSPHATASE 67 IU/L (40-150); ANION GAP 13.9 mmol/L (8-16); BLOOD UREA NITROGEN 6 mg/dL (7-26); BUN/CREATININE RATIO 12 (6-25); CALCIUM 8.6 mg/dL (8.4-10.2); CARBON DIOXIDE 25 mmol/L (22-29); CHLORIDE 103 mmol/L (98-107); CREATININE, SERUM 0.52 mg/dL (0.57-1.11); EST GLOMERULAR FILTRATION RATE 114 ML/MIN (60-); GLUCOSE 92 mg/dL (74-118); MAGNESIUM 1.7 MG/DL (1.3-2.1); PHOSPHORUS 3.1 MG/DL (2.3-4.7); POTASSIUM 3.9 mmol/L (3.5-5.1); SODIUM 138 mmol/L (136-145)
[2021-08-05 05:47] LABS: ALANINE AMINOTRANSFERASE < 6 IU/L (0-55)
[2021-08-05] MEDS: RIVAROXABAN 10 MG TABLET PO SCH (08:31)
[2021-08-05] MEDS: FAMOTIDINE 20 MG TAB PO SCH ×2 (08:31→16:27)
[2021-08-05] MEDS: HYDROCHLOROTHIAZIDE 25 MG TAB PO SCH (08:32)
[2021-08-05] MEDS: COLLAGENASE 5 GM TUBE TOP SCH (08:32)
[2021-08-05] MEDS: VALSARTAN 80 MG TAB PO SCH (08:32)
[2021-08-05] MEDS: MULTIVITAMINS/MINERALS TAB PO SCH (08:32)
[2021-08-05] MEDS: CYANOCOBALAMIN 1,000 MCG TAB PO SCH (08:32)
[2021-08-05] MEDS: BALSAM PERU/CASTOR OIL 60 GM OINT...G. TP SCH (08:32)
[2021-08-05] MEDS: DOCUSATE SODIUM 100 MG CAP PO SCH ×2 (08:39→16:27)
[2021-08-05] MEDS: HYDROCODONE/APAP 5MG-325MG TAB PO PRN (09:23)
[2021-08-05] MEDS: FERROUS SULFATE 325 MG TAB PO SCH (21:10)
[2021-08-05] MEDS: PRAVASTATIN 20 MG TAB PO SCH (21:11)
[2021-08-06] VITALS: BP 112/52
[2021-08-06 04:17] LABS: BASOPHILS % 0.6 % (0.0-1.0); EOSINOPHILS # (AUTO) 0.1 (0.0-0.4); EOSINOPHILS % 1.1 % (0.0-6.0); HEMOGLOBIN 7.6 g/dL (12.0-16.0); LYMPHOCYTES % 41.4 % (18.0-39.1); MEAN CORPUSCULAR HEMOGLOBIN 26.9 pg (28-32); MEAN CORPUSCULAR HGB CONC 30.4 g/dL (31-35); MEAN CORPUSCULAR VOLUME 88.3 fL (81-99); MONOCYTES # (AUTO) 0.4 (0.2-0.8); MONOCYTES % 7.8 % (4.4-11.3); NEUTROPHILS # (AUTO) 2.2 (2.1-6.9); NEUTROPHILS % 47.2 % (38.7-80.0); PLATELET COUNT 136 x10e3/uL (140-360); RED BLOOD COUNT 2.83 x10e6/uL (3.6-5.1); RED CELL DISTRIBUTION WIDTH 17.6 % (11.7-14.4)
[2021-08-06 04:28] LABS: ANION GAP 11.3 mmol/L (8-16); BLOOD UREA NITROGEN < 5 mg/dL (7-26); CALCIUM 8.4 mg/dL (8.4-10.2); CARBON DIOXIDE 27 mmol/L (22-29); CHLORIDE 102 mmol/L (98-107); CREATININE, SERUM 0.48 mg/dL (0.57-1.11); EST GLOMERULAR FILTRATION RATE 125 ML/MIN (60-); GLUCOSE 88 mg/dL (74-118); POTASSIUM 3.3 mmol/L (3.5-5.1); SODIUM 137 mmol/L (136-145)
[2021-08-06 04:32] LABS: BUN/CREATININE RATIO 10 (6-25)
[2021-08-06 04:35] VITALS: BP 122/53
[2021-08-06] MEDS ORDERED: POTASSIUM CHLORIDE 20 MEQ TAB CR PO ONE ×2 (07:15→11:00)
[2021-08-06 07:28] VITALS: BP 125/57
[2021-08-06] MEDS ORDERED: FERROUS SULFATE 325 MG TAB PO SCH (08:00)
[2021-08-06 08:33] VITALS: BP 125/57
[2021-08-06] MEDS ORDERED: MULTIVITAMINS/MINERALS TAB PO SCH (09:00)
[2021-08-06] MEDS: RIVAROXABAN 10 MG TABLET PO SCH (09:12)
[2021-08-06] MEDS: VALSARTAN 80 MG TAB PO SCH (09:12)
[2021-08-06] MEDS: FAMOTIDINE 20 MG TAB PO SCH ×2 (09:12→17:26)
[2021-08-06] MEDS: DOCUSATE SODIUM 100 MG CAP PO SCH ×2 (09:12→17:26)
[2021-08-06] MEDS: MAGNESIUM OXIDE 400 MG TAB PO SCH ×2 (09:13→17:26)
[2021-08-06] MEDS: FERROUS SULFATE 325 MG TAB PO SCH ×2 (09:13→17:26)
[2021-08-06] MEDS: MULTIVITAMINS/MINERALS TAB PO SCH (09:13)
[2021-08-06] MEDS: HYDROCHLOROTHIAZIDE 25 MG TAB PO SCH (09:13)
[2021-08-06] MEDS: COLLAGENASE 5 GM TUBE TOP SCH (09:14)
[2021-08-06] MEDS: ZINC SULFATE 220 MG CAP PO SCH ×2 (09:14→17:27)
[2021-08-06] MEDS: OYST-CAL-D 500MG TABLET PO SCH ×2 (09:14→17:26)
[2021-08-06] MEDS: BALSAM PERU/CASTOR OIL 60 GM OINT...G. TP SCH (09:14)
[2021-08-06] MEDS: CYANOCOBALAMIN 1,000 MCG TAB PO SCH (09:14)
[2021-08-06] MEDS: ASCORBIC ACID 500 MG TAB PO SCH ×2 (09:14→17:26)
[2021-08-06 11:35] VITALS: BP 138/54
[2021-08-06 15:29] VITALS: BP 146/54
== END 2021-08-06 18:40 | DRG 549 ==
LOC: MED/SURG3 19:13
PROVIDERS: ADMIT Internal Medicine; ATTEND Internal Medicine
PROC: 0S9D3ZX Drainage of Left Knee Joint, Percutaneous Approach, Diagnostic (ICD-10-PCS; 2021-07-23)
PROC: 02HV33Z Insertion of Infusion Device into Superior Vena Cava, Percutaneous Approach (ICD-10-PCS; principal; 2021-07-28)
DX: M00.062 Staphylococcal arthritis, left knee (principal); N17.9 Acute kidney failure, unspecified; E87.2 Acidosis; L03.116 Cellulitis of left lower limb; M86.8X6 Other osteomyelitis, lower leg; E46 Unspecified protein-calorie malnutrition; Z68.1 Body mass index [BMI] 19.9 or less, adult; B95.61 Methicillin susceptible Staphylococcus aureus infection as the cause of diseases classified elsewhere; Y79.2 Prosthetic and other implants, materials and accessory orthopedic devices associated with adverse incidents; E78.5 Hyperlipidemia, unspecified; E87.6 Hypokalemia; E83.42 Hypomagnesemia; D63.8 Anemia in other chronic diseases classified elsewhere; E88.09 Other disorders of plasma-protein metabolism, not elsewhere classified; D69.6 Thrombocytopenia, unspecified; Z86.718 Personal history of other venous thrombosis and embolism; D64.9 Anemia, unspecified; G89.4 Chronic pain syndrome; L89.152 Pressure ulcer of sacral region, stage 2; L89.310 Pressure ulcer of right buttock, unstageable; Z74.09 Other reduced mobility; W18.2XXA Fall in (into) shower or empty bathtub, initial encounter; Y93.9 Activity, unspecified; Y92.002 Bathroom of unspecified non-institutional (private) residence as the place of occurrence of the external cause
CPT/HCPCS: 36415; 36569; 71045; 76000; 80048; 80053; 80061; 80202; 81001; 82728; 82948; 83036; 83540; 83605; 83735; 84100; 84443; 84466; 85025; 85379; 86850; 86900; 87040; 87071; 87075; 87086; 87205; 89051; 93005; 93306; 93307; 93312; 93325; 93970; 94799; 96361; 97139; 99251; J0690; J1100; J1885; J2001; J2405; J2543; J3010; J3370; J7030; J7050; Q0162; U0002

== ENCOUNTER 2022-04-09 16:12 | Inpatient (IN) | payer MEDICARE ==
[~2022-04-09] VITALS: Ht 162.6 cm; Wt 64.0 kg
[~2022-04-09 16:12] MED LIST changes: +BENZONATATE150 MG; +CYCLOBENZAPRIN7.5 MG; +KETOROLAC60 MG/2 ML IV; -PRAVASTATIN SOD20 MG; +PRAVASTATIN SOD20 MG PO
[2022-04-09] MEDS ORDERED: SODIUM CHLORIDE 0.9% 1000ML 1,000 ML IV SCH (16:30)
[2022-04-09 17:26] LABS: BASOPHILS # (AUTO) 0.1 (0.0-0.1); BASOPHILS % 0.6 % (0.0-1.0); EOSINOPHILS # (AUTO) 0.1 (0.0-0.4); EOSINOPHILS % 0.5 % (0.0-6.0); HEMATOCRIT 37.7 % (34.2-44.1); HEMOGLOBIN 11.9 g/dL (12.0-16.0); LYMPHOCYTES # (AUTO) 1.6 (1.0-3.2); LYMPHOCYTES % 14.5 % (18.0-39.1); MEAN CORPUSCULAR HEMOGLOBIN 29.1 pg (28-32); MEAN CORPUSCULAR HGB CONC 31.6 g/dL (31-35); MEAN CORPUSCULAR VOLUME 92.2 fL (81-99); MONOCYTES # (AUTO) 0.5 (0.2-0.8); MONOCYTES % 4.1 % (4.4-11.3); NEUTROPHILS # (AUTO) 8.8 (2.1-6.9); NEUTROPHILS % 79.5 % (38.7-80.0); PLATELET COUNT 311 x10e3/uL (140-360); RED BLOOD COUNT 4.09 x10e6/uL (3.6-5.1); RED CELL DISTRIBUTION WIDTH 14.2 % (11.7-14.4)
[2022-04-09 17:38] LABS: ALBUMIN 2.9 g/dL (3.5-5.0); ALBUMIN/GLOBULIN RATIO 0.7 (0.8-2.0); ANION GAP 19.5 mmol/L (8-16); CREATININE, SERUM 0.86 mg/dL (0.57-1.11); POTASSIUM 3.5 mmol/L (3.5-5.1)
[2022-04-09] MEDS ORDERED: SODIUM CHLORIDE 0.9% 1000ML 1,000 ML IV ONE (17:45)
[2022-04-09] MEDS ORDERED: IOPAMIDOL 370 MG/ML 100 ML INFUS..BTL INJ ONE (18:04)
[2022-04-09 18:08] LABS: CLARITY,URINE SL CLOUDY (CLEAR); COLOR,URINE YELLOW (YELLOW); KETONES,URINE NEGATIVE (NEGATIVE); LEUKOCYTE ESTERASE ,URINE NEGATIVE (NEGATIVE); NITRITE,URINE NEGATIVE (NEGATIVE); PROTEIN,URINE DIPSTICK NEGATIVE (NEGATIVE); URINE UROBILINOGEN 0.2 mg/dL (0.2 - 1)
[2022-04-09 18:21] LABS: BACTERIA,URINE MODERATE /HPF; CALCIUM OXALATE CRYSTALS,UR FEW (FEW); EPITHELIAL CELLS,URINE FEW /LPF
[2022-04-09] MEDS ORDERED: ONDANSETRON HCL INJ 2MG/ML 2ML 2 MG/ML VIAL IV PRN (19:30)
[2022-04-09 20:52] VITALS: BP 113/67
[2022-04-09 21:00] VITALS: BP 113/67
[2022-04-09] MEDS: SODIUM CHLORIDE 0.9% 1000ML 1,000 ML IV SCH (21:37)
[2022-04-10] VITALS (8 sets, daily range): BP systolic 90–119; BP diastolic 45–80
[2022-04-10 05:15] LABS: BASOPHILS % 0.7 % (0.0-1.0); EOSINOPHILS # (AUTO) 0.1 (0.0-0.4); EOSINOPHILS % 1.5 % (0.0-6.0); HEMATOCRIT 29.1 % (34.2-44.1); HEMOGLOBIN 9.4 g/dL (12.0-16.0); LYMPHOCYTES # (AUTO) 2.2 (1.0-3.2); LYMPHOCYTES % 36.9 % (18.0-39.1); MEAN CORPUSCULAR HEMOGLOBIN 29.1 pg (28-32); MEAN CORPUSCULAR HGB CONC 32.3 g/dL (31-35); MEAN CORPUSCULAR VOLUME 90.1 fL (81-99); MONOCYTES # (AUTO) 0.5 (0.2-0.8); MONOCYTES % 8.6 % (4.4-11.3); NEUTROPHILS # (AUTO) 3.2 (2.1-6.9); NEUTROPHILS % 51.8 % (38.7-80.0); PLATELET COUNT 178 x10e3/uL (140-360); RED BLOOD COUNT 3.23 x10e6/uL (3.6-5.1); RED CELL DISTRIBUTION WIDTH 14.1 % (11.7-14.4)
[2022-04-10 05:41] LABS: ALBUMIN 2.1 g/dL (3.5-5.0); ALBUMIN/GLOBULIN RATIO 0.6 (0.8-2.0); CALCIUM 8.6 mg/dL (8.4-10.2); CREATININE, SERUM 0.65 mg/dL (0.57-1.11)
[2022-04-10 05:54] LABS: CHOL/HDL RATIO 4.3 (3.0-3.6)
[2022-04-10] MEDS: SODIUM CHLORIDE 0.9% 1000ML 1,000 ML IV SCH ×3 (05:59→17:20)
[2022-04-10] MEDS: FAMOTIDINE 20 MG TAB PO SCH ×2 (07:30→17:20)
[2022-04-10] MEDS: HYDROCHLOROTHIAZIDE 25 MG TAB PO SCH (08:11)
[2022-04-10] MEDS: MULTIVITAMINS/MINERALS TAB PO SCH (08:11)
[2022-04-10] MEDS: DOCUSATE SODIUM 100 MG CAP PO SCH ×2 (08:12→17:20)
[2022-04-10] MEDS: SENNOSIDES 8.6 MG TAB PO SCH (08:12)
[2022-04-10] MEDS: PRAVASTATIN 20 MG TAB PO SCH (08:12)
[2022-04-10] MEDS: CYANOCOBALAMIN 1,000 MCG TAB PO SCH (08:12)
[2022-04-10] MEDS ORDERED: VALSARTAN 80 MG TAB PO SCH (09:00)
[2022-04-10] MEDS: HEPARIN SOD (PORCINE) 5,000 UNIT/ML VIAL SC SCH ×2 (09:00→20:38)
[2022-04-10] MEDS: Vancomycin IV 1 GM in SODIUM CHLORIDE 0.9% 250ML 250 ML IV SCH (10:19)
[2022-04-10] MEDS: COLLAGENASE 5 GM TUBE TP SCH (17:17)
[2022-04-10] MEDS ORDERED: POTASSIUM CHLORIDE 20 MEQ TAB CR PO ONE (20:30)
[2022-04-11] VITALS (8 sets, daily range): BP systolic 103–121; BP diastolic 54–68
[2022-04-11] MEDS: SODIUM CHLORIDE 0.9% 1000ML 1,000 ML IV SCH ×3 (02:26→19:30)
[2022-04-11] MEDS: SENNOSIDES 8.6 MG TAB PO SCH (09:12)
[2022-04-11] MEDS: MULTIVITAMINS/MINERALS TAB PO SCH (09:12)
[2022-04-11] MEDS: DOCUSATE SODIUM 100 MG CAP PO SCH ×2 (09:12→16:23)
[2022-04-11] MEDS: FAMOTIDINE 20 MG TAB PO SCH ×2 (09:12→16:23)
[2022-04-11] MEDS: Vancomycin IV 1 GM in SODIUM CHLORIDE 0.9% 250ML 250 ML IV SCH (09:12)
[2022-04-11] MEDS: PRAVASTATIN 20 MG TAB PO SCH (09:13)
[2022-04-11] MEDS: CYANOCOBALAMIN 1,000 MCG TAB PO SCH (09:13)
[2022-04-11] MEDS: HYDROCHLOROTHIAZIDE 25 MG TAB PO SCH (09:13)
[2022-04-11] MEDS: COLLAGENASE 5 GM TUBE TP SCH (09:14)
[2022-04-11] MEDS: HEPARIN SOD (PORCINE) 5,000 UNIT/ML VIAL SC SCH ×2 (09:23→21:54)
[2022-04-11] MEDS ORDERED: POTASSIUM CHLORIDE 20 MEQ TAB CR PO STA (14:59)
[2022-04-11] MEDS ORDERED: IOPAMIDOL 370 MG/ML 100 ML INFUS..BTL INJ ONE (16:05)
[2022-04-12] VITALS (8 sets, daily range): BP systolic 105–116; BP diastolic 51–73
[2022-04-12] MEDS: SODIUM CHLORIDE 0.9% 1000ML 1,000 ML IV SCH ×3 (03:06→19:30)
[2022-04-12] MEDS: DOCUSATE SODIUM 100 MG CAP PO SCH ×2 (07:56→16:05)
[2022-04-12] MEDS: SENNOSIDES 8.6 MG TAB PO SCH (07:56)
[2022-04-12] MEDS ORDERED: COLLAGENASE OINTMENT 30 GM TUBE TP SCH (09:00)
[2022-04-12] MEDS: Vancomycin IV 1 GM in SODIUM CHLORIDE 0.9% 250ML 250 ML IV SCH ×2 (09:10→13:14)
[2022-04-12] MEDS: CYANOCOBALAMIN 1,000 MCG TAB PO SCH (09:10)
[2022-04-12] MEDS: PRAVASTATIN 20 MG TAB PO SCH (09:11)
[2022-04-12] MEDS: FAMOTIDINE 20 MG TAB PO SCH ×2 (09:11→16:05)
[2022-04-12] MEDS: HYDROCHLOROTHIAZIDE 25 MG TAB PO SCH (09:11)
[2022-04-12] MEDS: HEPARIN SOD (PORCINE) 5,000 UNIT/ML VIAL SC SCH ×2 (09:12→21:44)
[2022-04-12] MEDS: MULTIVITAMINS/MINERALS TAB PO SCH (09:14)
[2022-04-12] MEDS: COLLAGENASE 5 GM TUBE TP SCH (09:14)
[2022-04-13] VITALS (8 sets, daily range): BP systolic 110–117; BP diastolic 61–73
[2022-04-13] MEDS: SODIUM CHLORIDE 0.9% 1000ML 1,000 ML IV SCH ×2 (03:27→11:43)
[2022-04-13] MEDS: Vancomycin IV 1 GM in SODIUM CHLORIDE 0.9% 250ML 250 ML IV SCH (09:12)
[2022-04-13] MEDS: COLLAGENASE 5 GM TUBE TP SCH (09:13)
[2022-04-13] MEDS: PRAVASTATIN 20 MG TAB PO SCH (09:14)
[2022-04-13] MEDS: DOCUSATE SODIUM 100 MG CAP PO SCH ×2 (09:14→16:31)
[2022-04-13] MEDS: SENNOSIDES 8.6 MG TAB PO SCH (09:15)
[2022-04-13] MEDS: MULTIVITAMINS/MINERALS TAB PO SCH (09:15)
[2022-04-13] MEDS: CYANOCOBALAMIN 1,000 MCG TAB PO SCH (09:15)
[2022-04-13] MEDS: HYDROCHLOROTHIAZIDE 25 MG TAB PO SCH (09:15)
[2022-04-13] MEDS: FAMOTIDINE 20 MG TAB PO SCH ×2 (09:20→16:33)
[2022-04-13] MEDS: HEPARIN SOD (PORCINE) 5,000 UNIT/ML VIAL SC SCH ×2 (09:45→21:01)
[2022-04-14] VITALS (8 sets, daily range): BP systolic 99–132; BP diastolic 58–66
[2022-04-14] MEDS: SODIUM CHLORIDE 0.9% 1000ML 1,000 ML IV SCH ×4 (03:30→21:20)
[2022-04-14] MEDS: HEPARIN SOD (PORCINE) 5,000 UNIT/ML VIAL SC SCH ×2 (08:18→21:21)
[2022-04-14] MEDS: FAMOTIDINE 20 MG TAB PO SCH ×2 (08:26→16:49)
[2022-04-14] MEDS: HYDROCHLOROTHIAZIDE 25 MG TAB PO SCH (08:27)
[2022-04-14] MEDS: COLLAGENASE 5 GM TUBE TP SCH (08:27)
[2022-04-14] MEDS: PRAVASTATIN 20 MG TAB PO SCH (08:27)
[2022-04-14] MEDS: MULTIVITAMINS/MINERALS TAB PO SCH (08:27)
[2022-04-14] MEDS: CYANOCOBALAMIN 1,000 MCG TAB PO SCH (08:27)
[2022-04-14] MEDS: SENNOSIDES 8.6 MG TAB PO SCH (08:28)
[2022-04-14] MEDS: DOCUSATE SODIUM 100 MG CAP PO SCH ×2 (08:28→16:46)
[2022-04-14] MEDS: Vancomycin IV 1 GM in SODIUM CHLORIDE 0.9% 250ML 250 ML IV SCH (08:31)
[2022-04-14] MEDS ORDERED: POTASSIUM CHLORIDE 20 MEQ TAB CR PO ONE (10:00)
[2022-04-14 13:47] LABS: BODY FLUID APPEARANCE SL.CLOUDY; BODY FLUID COLOR RED; BODY FLUID TYPE SYNOVIAL
[2022-04-14 13:50] LABS: WBC,BODY FLUID 99 cells/uL
[2022-04-14 13:51] LABS: RBC,BODY FLUID 85000 cells/uL
[2022-04-14 15:02] LABS: LYMPHOCYTES,BODY FLUID 26 %; MONO/MACROPHG,BODY FLUID 5 %; NEUTROPHILS,BODY FLUID 69 %
[2022-04-15] VITALS (7 sets, daily range): BP systolic 112–136; BP diastolic 53–75
[2022-04-15] MEDS: SODIUM CHLORIDE 0.9% 1000ML 1,000 ML IV SCH ×3 (03:30→23:39)
[2022-04-15] MEDS: Vancomycin IV 1 GM in SODIUM CHLORIDE 0.9% 250ML 250 ML IV SCH (08:46)
[2022-04-15] MEDS: PRAVASTATIN 20 MG TAB PO SCH (08:46)
[2022-04-15] MEDS: FAMOTIDINE 20 MG TAB PO SCH ×2 (08:47→16:30)
[2022-04-15] MEDS: DOCUSATE SODIUM 100 MG CAP PO SCH ×2 (08:47→17:00)
[2022-04-15] MEDS: CYANOCOBALAMIN 1,000 MCG TAB PO SCH (08:47)
[2022-04-15] MEDS: HYDROCHLOROTHIAZIDE 25 MG TAB PO SCH (08:47)
[2022-04-15] MEDS: HEPARIN SOD (PORCINE) 5,000 UNIT/ML VIAL SC SCH ×2 (09:00→21:00)
[2022-04-15] MEDS: MULTIVITAMINS/MINERALS TAB PO SCH (09:00)
[2022-04-15] MEDS: SENNOSIDES 8.6 MG TAB PO SCH (09:00)
[2022-04-15 10:38] LABS: BASOPHILS % 0.7 % (0.0-1.0); EOSINOPHILS # (AUTO) 0.2 (0.0-0.4); EOSINOPHILS % 4.5 % (0.0-6.0); HEMOGLOBIN 9.5 g/dL (12.0-16.0); LYMPHOCYTES # (AUTO) 1.7 (1.0-3.2); LYMPHOCYTES % 38.5 % (18.0-39.1); MEAN CORPUSCULAR HEMOGLOBIN 28.8 pg (28-32); MEAN CORPUSCULAR HGB CONC 30.6 g/dL (31-35); MEAN CORPUSCULAR VOLUME 93.9 fL (81-99); MONOCYTES # (AUTO) 0.3 (0.2-0.8); MONOCYTES % 6.8 % (4.4-11.3); NEUTROPHILS # (AUTO) 2.2 (2.1-6.9); PLATELET COUNT 159 x10e3/uL (140-360); RED CELL DISTRIBUTION WIDTH 13.3 % (11.7-14.4)
[2022-04-15 11:01] LABS: CALCIUM 8.6 mg/dL (8.4-10.2); CREATININE, SERUM 0.66 mg/dL (0.57-1.11)
[2022-04-15] MEDS: COLLAGENASE 5 GM TUBE TP SCH (17:00)
[2022-04-16] VITALS (7 sets, daily range): BP systolic 102–130; BP diastolic 44–68
[2022-04-16] MEDS: SODIUM CHLORIDE 0.9% 1000ML 1,000 ML IV SCH ×3 (03:30→19:30)
[2022-04-16] MEDS: SENNOSIDES 8.6 MG TAB PO SCH (08:45)
[2022-04-16] MEDS: FUROSEMIDE INJ 10 MG/ML 2 ML VIAL IV SCH (08:45)
[2022-04-16] MEDS: PRAVASTATIN 20 MG TAB PO SCH (08:45)
[2022-04-16] MEDS: CYANOCOBALAMIN 1,000 MCG TAB PO SCH (08:45)
[2022-04-16] MEDS: HYDROCHLOROTHIAZIDE 25 MG TAB PO SCH (08:45)
[2022-04-16] MEDS: MULTIVITAMINS/MINERALS TAB PO SCH (08:45)
[2022-04-16] MEDS: FAMOTIDINE 20 MG TAB PO SCH ×2 (08:45→17:07)
[2022-04-16] MEDS: DOCUSATE SODIUM 100 MG CAP PO SCH ×2 (08:45→17:00)
[2022-04-16] MEDS: Vancomycin IV 1 GM in SODIUM CHLORIDE 0.9% 250ML 250 ML IV SCH (09:55)
[2022-04-16] MEDS: COLLAGENASE 5 GM TUBE TP SCH (09:55)
[2022-04-16 10:09] LABS: ANION GAP 19.1 mmol/L (8-16); CREATININE, SERUM 0.58 mg/dL (0.57-1.11); POTASSIUM 3.1 mmol/L (3.5-5.1)
[2022-04-16] MEDS: HEPARIN SOD (PORCINE) 5,000 UNIT/ML VIAL SC SCH ×2 (13:20→20:29)
[2022-04-16] MEDS: ACETAMINOPHEN 325 MG TAB PO PRN (21:48)
[2022-04-17] VITALS (8 sets, daily range): BP systolic 120–130; BP diastolic 54–69
[2022-04-17] MEDS: SENNOSIDES 8.6 MG TAB PO SCH (09:00)
[2022-04-17] MEDS: FUROSEMIDE INJ 10 MG/ML 2 ML VIAL IV SCH (09:32)
[2022-04-17] MEDS: PRAVASTATIN 20 MG TAB PO SCH (09:32)
[2022-04-17] MEDS: DOCUSATE SODIUM 100 MG CAP PO SCH ×2 (09:32→16:49)
[2022-04-17] MEDS: CYANOCOBALAMIN 1,000 MCG TAB PO SCH (09:32)
[2022-04-17] MEDS: FAMOTIDINE 20 MG TAB PO SCH ×2 (09:33→16:15)
[2022-04-17] MEDS: MULTIVITAMINS/MINERALS TAB PO SCH (09:33)
[2022-04-17] MEDS: HYDROCHLOROTHIAZIDE 25 MG TAB PO SCH (09:33)
[2022-04-17] MEDS: COLLAGENASE 5 GM TUBE TP SCH (09:34)
[2022-04-17] MEDS: Vancomycin IV 1 GM in SODIUM CHLORIDE 0.9% 250ML 250 ML IV SCH (09:34)
[2022-04-17] MEDS ORDERED: POTASSIUM CHLORIDE 20MEQ/100ML 100 ML IV ONE ×2 (10:30→14:30)
[2022-04-17] MEDS: SODIUM CHLORIDE 0.9% 1000ML 1,000 ML IV SCH ×4 (10:51→21:05)
[2022-04-17] MEDS ORDERED: ONDANSETRON HCL 4 MG ORAL DISINTEGRATING TAB PO PRN (11:00)
[2022-04-17] MEDS: ACETAMINOPHEN 325 MG TAB PO PRN (16:15)
[2022-04-17] MEDS ORDERED: NEOSTIGMINE 1 MG/ML 10ML VIAL ONE (17:18)
[2022-04-17] MEDS ORDERED: POVIDONE IODINE 0.05% 0.05 % ML PO ONE (17:18)
[2022-04-17] MEDS ORDERED: EPHEDRINE SULFATE INJ 50 MG/ML VIAL ONE (17:18)
[2022-04-17] MEDS ORDERED: PHENYLEPHRINE HCL 1% 10 MG/ML VIAL ONE (17:18)
[2022-04-17] MEDS ORDERED: SEVOFLURANE INHAL SOLN 250 ML PEN BTL ONE (17:18)
[2022-04-17] MEDS ORDERED: GLYCOPYRROLATE INJ 0.2 MG/ML VIAL ONE (17:18)
[2022-04-17] MEDS ORDERED: ROCURONIUM BROMIDE 10 MG/ML 5ML VIAL IV ONE (17:18)
[2022-04-17] MEDS ORDERED: ONDANSETRON HCL INJ 2MG/ML 2ML 2 MG/ML VIAL ONE (17:18)
[2022-04-17] MEDS ORDERED: EYE LUBRICANT OPTH OINT 3.5GM TUBE OP ONE (17:18)
[2022-04-17] MEDS ORDERED: DEXAMETHASONE SOD PHOS INJ 4 MG/ML SDV ONE (17:18)
[2022-04-17] MEDS ORDERED: FAMOTIDINE 20 MG/2 ML VIAL IV ONE (17:18)
[2022-04-17] MEDS ORDERED: PROPOFOL IV EMULSION 10 MG/ML 20 ML VIAL ONE (17:18)
[2022-04-17] MEDS ORDERED: LIDOCAINE HCL 2% LOCAL INJ 5 ML SDV VIAL INJ ONE (17:18)
[2022-04-18] VITALS (8 sets, daily range): BP systolic 108–137; BP diastolic 60–72
[2022-04-18] MEDS: SODIUM CHLORIDE 0.9% 1000ML 1,000 ML IV SCH ×4 (03:30→20:17)
[2022-04-18 07:57] LABS: BASOPHILS % 0.6 % (0.0-1.0); EOSINOPHILS # (AUTO) 0.2 (0.0-0.4); EOSINOPHILS % 3.6 % (0.0-6.0); HEMATOCRIT 34.1 % (34.2-44.1); HEMOGLOBIN 10.4 g/dL (12.0-16.0); LYMPHOCYTES # (AUTO) 1.7 (1.0-3.2); LYMPHOCYTES % 32.7 % (18.0-39.1); MEAN CORPUSCULAR HEMOGLOBIN 28.8 pg (28-32); MEAN CORPUSCULAR HGB CONC 30.5 g/dL (31-35); MEAN CORPUSCULAR VOLUME 94.5 fL (81-99); MONOCYTES # (AUTO) 0.4 (0.2-0.8); MONOCYTES % 7.5 % (4.4-11.3); NEUTROPHILS # (AUTO) 2.8 (2.1-6.9); NEUTROPHILS % 55.2 % (38.7-80.0); PLATELET COUNT 196 x10e3/uL (140-360); RED BLOOD COUNT 3.61 x10e6/uL (3.6-5.1); RED CELL DISTRIBUTION WIDTH 13.7 % (11.7-14.4)
[2022-04-18] MEDS: MULTIVITAMINS/MINERALS TAB PO SCH (08:36)
[2022-04-18] MEDS: Vancomycin IV 1 GM in SODIUM CHLORIDE 0.9% 250ML 250 ML IV SCH (08:36)
[2022-04-18] MEDS: SENNOSIDES 8.6 MG TAB PO SCH (08:37)
[2022-04-18] MEDS: HYDROCHLOROTHIAZIDE 25 MG TAB PO SCH (08:37)
[2022-04-18] MEDS: CYANOCOBALAMIN 1,000 MCG TAB PO SCH (08:37)
[2022-04-18] MEDS: DOCUSATE SODIUM 100 MG CAP PO SCH ×2 (08:37→16:53)
[2022-04-18] MEDS: FAMOTIDINE 20 MG TAB PO SCH ×2 (08:37→16:53)
[2022-04-18] MEDS: FUROSEMIDE INJ 10 MG/ML 2 ML VIAL IV SCH (08:37)
[2022-04-18] MEDS: PRAVASTATIN 20 MG TAB PO SCH (08:38)
[2022-04-18] MEDS: COLLAGENASE 5 GM TUBE TP SCH (08:38)
[2022-04-18 09:15] LABS: ANION GAP 11.2 mmol/L (8-16); BLOOD UREA NITROGEN < 5 mg/dL (7-26); CALCIUM 9.1 mg/dL (8.4-10.2); CARBON DIOXIDE 27 mmol/L (22-29); CHLORIDE 106 mmol/L (98-107); CREATININE, SERUM 0.64 mg/dL (0.57-1.11); GLUCOSE 86 mg/dL (74-118); POTASSIUM 3.2 mmol/L (3.5-5.1); SODIUM 141 mmol/L (136-145)
[2022-04-18 10:18] LABS: BUN/CREATININE RATIO 8 (6-25)
[2022-04-18] MEDS: ACETAMINOPHEN 325 MG TAB PO PRN (14:48)
[2022-04-18] MEDS ORDERED: POTASSIUM CHLORIDE 20 MEQ TAB CR PO NR (15:39)
[2022-04-19] VITALS (8 sets, daily range): BP systolic 95–136; BP diastolic 60–68
[2022-04-19 08:41] LABS: MAGNESIUM 1.8 MG/DL (1.3-2.1)
[2022-04-19 08:54] LABS: POTASSIUM 2.7 mmol/L (3.5-5.1)
[2022-04-19] MEDS: Vancomycin IV 1 GM in SODIUM CHLORIDE 0.9% 250ML 250 ML IV SCH (08:57)
[2022-04-19] MEDS: MULTIVITAMINS/MINERALS TAB PO SCH (08:58)
[2022-04-19] MEDS: FUROSEMIDE INJ 10 MG/ML 2 ML VIAL IV SCH (08:58)
[2022-04-19] MEDS: PRAVASTATIN 20 MG TAB PO SCH (08:59)
[2022-04-19] MEDS: HYDROCHLOROTHIAZIDE 25 MG TAB PO SCH (08:59)
[2022-04-19] MEDS: SENNOSIDES 8.6 MG TAB PO SCH (09:00)
[2022-04-19] MEDS: COLLAGENASE 5 GM TUBE TP SCH (09:00)
[2022-04-19] MEDS: DOCUSATE SODIUM 100 MG CAP PO SCH ×2 (09:01→16:43)
[2022-04-19] MEDS: CYANOCOBALAMIN 1,000 MCG TAB PO SCH (09:01)
[2022-04-19] MEDS: FAMOTIDINE 20 MG TAB PO SCH ×2 (09:02→16:43)
[2022-04-19] MEDS ORDERED: POTASSIUM CHLORIDE 20MEQ/100ML 100 ML IV ONE (11:15)
[2022-04-19] MEDS: SODIUM CHLORIDE 0.9% 1000ML 1,000 ML IV SCH ×2 (11:22→21:00)
[2022-04-19] MEDS ORDERED: POTASSIUM CHLORIDE 20 MEQ TAB CR PO NR (11:30)
[2022-04-19] MEDS: POTASSIUM CHLORIDE 20 MEQ TAB CR PO SCH (11:57)
[2022-04-19 18:51] LABS: BASOPHILS % 0.5 % (0.0-1.0); EOSINOPHILS # (AUTO) 0.1 (0.0-0.4); EOSINOPHILS % 2.5 % (0.0-6.0); HEMATOCRIT 35.5 % (34.2-44.1); LYMPHOCYTES # (AUTO) 2.1 (1.0-3.2); LYMPHOCYTES % 36.9 % (18.0-39.1); MEAN CORPUSCULAR HEMOGLOBIN 29.3 pg (28-32); MEAN CORPUSCULAR VOLUME 94.4 fL (81-99); MONOCYTES # (AUTO) 0.6 (0.2-0.8); MONOCYTES % 9.8 % (4.4-11.3); NEUTROPHILS # (AUTO) 2.8 (2.1-6.9); NEUTROPHILS % 50.1 % (38.7-80.0); PLATELET COUNT 200 x10e3/uL (140-360); RED BLOOD COUNT 3.76 x10e6/uL (3.6-5.1); RED CELL DISTRIBUTION WIDTH 13.8 % (11.7-14.4)
[2022-04-19 19:01] LABS: CALCIUM 8.6 mg/dL (8.4-10.2); CREATININE, SERUM 0.65 mg/dL (0.57-1.11)
[2022-04-19 19:49] LABS: ALBUMIN 2.4 g/dL (3.5-5.0)
[2022-04-20] VITALS (8 sets, daily range): BP systolic 99–135; BP diastolic 56–71
[2022-04-20] MEDS: SODIUM CHLORIDE 0.9% 1000ML 1,000 ML IV SCH ×4 (03:05→23:23)
[2022-04-20] MEDS: SENNOSIDES 8.6 MG TAB PO SCH (09:00)
[2022-04-20] MEDS: DOCUSATE SODIUM 100 MG CAP PO SCH ×2 (09:00→15:48)
[2022-04-20] MEDS: MULTIVITAMINS/MINERALS TAB PO SCH (09:41)
[2022-04-20] MEDS: PRAVASTATIN 20 MG TAB PO SCH (09:41)
[2022-04-20] MEDS: HYDROCHLOROTHIAZIDE 25 MG TAB PO SCH (09:41)
[2022-04-20] MEDS: ACETAMINOPHEN 325 MG TAB PO PRN ×2 (09:43→21:18)
[2022-04-20] MEDS: CYANOCOBALAMIN 1,000 MCG TAB PO SCH (09:43)
[2022-04-20] MEDS: FAMOTIDINE 20 MG TAB PO SCH ×2 (09:43→15:48)
[2022-04-20] MEDS: FUROSEMIDE INJ 10 MG/ML 2 ML VIAL IV SCH (09:49)
[2022-04-20] MEDS: COLLAGENASE 5 GM TUBE TP SCH (09:50)
[2022-04-20] MEDS ORDERED: POTASSIUM CHLORIDE 20 MEQ TAB CR PO ONE ×2 (11:00→17:30)
[2022-04-20] MEDS ORDERED: Vancomycin IV 1 GM in SODIUM CHLORIDE 0.9% 250ML 250 ML IV SCH (12:00)
[2022-04-20] MEDS: Vancomycin IV 1 GM in SODIUM CHLORIDE 0.9% 250ML 250 ML IV SCH (14:30)
[2022-04-20 14:45] LABS: BASOPHILS % 0.7 % (0.0-1.0); EOSINOPHILS # (AUTO) 0.2 (0.0-0.4); EOSINOPHILS % 3.3 % (0.0-6.0); HEMATOCRIT 34.5 % (34.2-44.1); HEMOGLOBIN 11.1 g/dL (12.0-16.0); LYMPHOCYTES % 34.3 % (18.0-39.1); MEAN CORPUSCULAR HEMOGLOBIN 28.8 pg (28-32); MEAN CORPUSCULAR HGB CONC 32.2 g/dL (31-35); MEAN CORPUSCULAR VOLUME 89.4 fL (81-99); MONOCYTES # (AUTO) 0.4 (0.2-0.8); MONOCYTES % 7.7 % (4.4-11.3); NEUTROPHILS # (AUTO) 3.1 (2.1-6.9); NEUTROPHILS % 53.6 % (38.7-80.0); PLATELET COUNT 197 x10e3/uL (140-360); RED BLOOD COUNT 3.86 x10e6/uL (3.6-5.1); RED CELL DISTRIBUTION WIDTH 14.3 % (11.7-14.4)
[2022-04-20 15:07] LABS: ALBUMIN 2.4 g/dL (3.5-5.0); ALBUMIN/GLOBULIN RATIO 0.6 (0.8-2.0); ANION GAP 11.2 mmol/L (8-16); CREATININE, SERUM 0.63 mg/dL (0.57-1.11); POTASSIUM 3.2 mmol/L (3.5-5.1)
[2022-04-20] MEDS ORDERED: DIPHENHYDRAMINE HCL 25 MG CAP PO PRN (21:00)
[2022-04-20] MEDS ORDERED: NAPROXEN 250 MG TAB PO PRN (21:00)
[2022-04-21] VITALS (7 sets, daily range): BP systolic 117–135; BP diastolic 58–75
[2022-04-21] MEDS: Vancomycin IV 1 GM in SODIUM CHLORIDE 0.9% 250ML 250 ML IV SCH ×2 (01:00→14:00)
[2022-04-21] MEDS: SODIUM CHLORIDE 0.9% 1000ML 1,000 ML IV SCH ×7 (02:47→23:20)
[2022-04-21] MEDS: POTASSIUM CHLORIDE 20 MEQ TAB CR PO SCH (02:48)
[2022-04-21 06:10] LABS: ANION GAP 11.8 mmol/L (8-16); CALCIUM 8.9 mg/dL (8.4-10.2); CREATININE, SERUM 0.66 mg/dL (0.57-1.11); POTASSIUM 3.8 mmol/L (3.5-5.1)
[2022-04-21] MEDS: FAMOTIDINE 20 MG TAB PO SCH ×2 (07:30→17:25)
[2022-04-21] MEDS: FUROSEMIDE INJ 10 MG/ML 2 ML VIAL IV SCH (08:58)
[2022-04-21] MEDS: CYANOCOBALAMIN 1,000 MCG TAB PO SCH (09:00)
[2022-04-21] MEDS: DOCUSATE SODIUM 100 MG CAP PO SCH ×2 (09:00→17:00)
[2022-04-21] MEDS: MULTIVITAMINS/MINERALS TAB PO SCH (09:00)
[2022-04-21] MEDS: PRAVASTATIN 20 MG TAB PO SCH (09:00)
[2022-04-21] MEDS: SENNOSIDES 8.6 MG TAB PO SCH (09:00)
[2022-04-21] MEDS: HYDROCHLOROTHIAZIDE 25 MG TAB PO SCH (09:00)
[2022-04-21] MEDS: COLLAGENASE 5 GM TUBE TP SCH (09:00)
[2022-04-21] MEDS ORDERED: MUPIROCIN 2% OINT 22 GM TUBE ONE (10:53)
[2022-04-21] MEDS ORDERED: MINERAL OIL STERILE 10ML VIAL ONE (10:54)
[2022-04-21] MEDS ORDERED: BUPIVACAINE HCL 0.5% INJ 30 ML VIAL INJ ONE (10:54)
[2022-04-21] MEDS ORDERED: FENTANYL CITRATE/PF 100MCG/2 ML INJ ONE ×2 (12:37→15:36)
[2022-04-21] MEDS ORDERED: NALOXONE HCL INJ 0.4 MG/ML AMP IV PRN (14:00)
[2022-04-21] MEDS ORDERED: HYDROMORPHONE 0.2MG/ML-SOD CHL 30ML PCA SYRINGE IV PRN (14:00)
[2022-04-21] MEDS ORDERED: ONDANSETRON HCL INJ 2MG/ML 2ML 2 MG/ML VIAL IV PRN (14:00)
[2022-04-21] MEDS ORDERED: ACETAMINOPHEN 1000 MG/100 ML IV PRN (15:00)
[2022-04-21] MEDS ORDERED: HYDROMORPHONE 0.2MG/ML-SOD CHL 30ML PCA SYRINGE IV ONE (15:53)
[2022-04-21] MEDS ORDERED: Vancomycin IV 1 GM in SODIUM CHLORIDE 0.9% 250ML 250 ML IV SCH (16:00)
[2022-04-21] MEDS: ACETAMINOPHEN 325 MG TAB PO PRN (23:33)
[2022-04-22] VITALS: BP 108/53
[2022-04-22] MEDS: Vancomycin IV 1 GM in SODIUM CHLORIDE 0.9% 250ML 250 ML IV SCH ×2 (01:28→14:12)
[2022-04-22] MEDS: SODIUM CHLORIDE 0.9% 1000ML 1,000 ML IV SCH ×6 (04:21→21:29)
[2022-04-22] MEDS: POTASSIUM CHLORIDE 20 MEQ TAB CR PO SCH (05:40)
[2022-04-22 05:53] LABS: HEMATOCRIT 29.7 % (34.2-44.1); HEMOGLOBIN 9.4 g/dL (12.0-16.0)
[2022-04-22 08:08] VITALS: BP 111/70
[2022-04-22 08:20] VITALS: BP 111/70
[2022-04-22] MEDS: FUROSEMIDE INJ 10 MG/ML 2 ML VIAL IV SCH (08:50)
[2022-04-22] MEDS: SENNOSIDES 8.6 MG TAB PO SCH (08:51)
[2022-04-22] MEDS: MULTIVITAMINS/MINERALS TAB PO SCH (08:51)
[2022-04-22] MEDS: RIVAROXABAN 10 MG TABLET PO SCH (08:51)
[2022-04-22] MEDS: HYDROCHLOROTHIAZIDE 25 MG TAB PO SCH (08:51)
[2022-04-22] MEDS: FAMOTIDINE 20 MG TAB PO SCH ×2 (08:51→16:16)
[2022-04-22] MEDS: DOCUSATE SODIUM 100 MG CAP PO SCH ×2 (08:51→16:16)
[2022-04-22] MEDS: CYANOCOBALAMIN 1,000 MCG TAB PO SCH (08:56)
[2022-04-22] MEDS: PRAVASTATIN 20 MG TAB PO SCH (08:56)
[2022-04-22] MEDS: COLLAGENASE 5 GM TUBE TP SCH (08:56)
[2022-04-22 11:45] VITALS: BP 138/98
[2022-04-22 15:46] VITALS: BP 109/59
[2022-04-22 15:49] LABS: ANION GAP 12.6 mmol/L (8-16); CALCIUM 9.1 mg/dL (8.4-10.2); CREATININE, SERUM 0.67 mg/dL (0.57-1.11); POTASSIUM 3.6 mmol/L (3.5-5.1)
[2022-04-22 20:00] VITALS: BP 97/78
[2022-04-23] VITALS (7 sets, daily range): BP systolic 90–116; BP diastolic 50–78
[2022-04-23] MEDS: Vancomycin IV 1 GM in SODIUM CHLORIDE 0.9% 250ML 250 ML IV SCH ×2 (02:00→15:05)
[2022-04-23] MEDS: SODIUM CHLORIDE 0.9% 1000ML 1,000 ML IV SCH ×8 (02:00→22:00)
[2022-04-23] MEDS: POTASSIUM CHLORIDE 20 MEQ TAB CR PO SCH (05:48)
[2022-04-23] MEDS ORDERED: ONDANSETRON HCL 4 MG ORAL DISINTEGRATING TAB PO PRN (09:00)
[2022-04-23] MEDS: FUROSEMIDE INJ 10 MG/ML 2 ML VIAL IV SCH (09:47)
[2022-04-23] MEDS: FAMOTIDINE 20 MG TAB PO SCH ×2 (09:47→17:12)
[2022-04-23] MEDS: DOCUSATE SODIUM 100 MG CAP PO SCH ×2 (09:47→17:12)
[2022-04-23] MEDS: HYDROCHLOROTHIAZIDE 25 MG TAB PO SCH (09:47)
[2022-04-23] MEDS: SENNOSIDES 8.6 MG TAB PO SCH (09:48)
[2022-04-23] MEDS: CYANOCOBALAMIN 1,000 MCG TAB PO SCH (09:48)
[2022-04-23] MEDS: MULTIVITAMINS/MINERALS TAB PO SCH (09:48)
[2022-04-23] MEDS: PRAVASTATIN 20 MG TAB PO SCH (09:48)
[2022-04-23] MEDS: RIVAROXABAN 10 MG TABLET PO SCH (09:48)
[2022-04-23] MEDS: COLLAGENASE 5 GM TUBE TP SCH (12:35)
[2022-04-23] MEDS: HYDROCODONE/APAP 5MG-325MG TAB PO PRN (13:47)
[2022-04-23 14:02] LABS: ANION GAP 11.6 mmol/L (8-16); CALCIUM 8.8 mg/dL (8.4-10.2); CREATININE, SERUM 0.64 mg/dL (0.57-1.11); POTASSIUM 3.6 mmol/L (3.5-5.1)
[2022-04-24] VITALS (9 sets, daily range): BP systolic 96–128; BP diastolic 58–76
[2022-04-24] MEDS: SODIUM CHLORIDE 0.9% 1000ML 1,000 ML IV SCH ×5 (04:56→18:00)
[2022-04-24] MEDS: POTASSIUM CHLORIDE 20 MEQ TAB CR PO SCH (05:56)
[2022-04-24 06:10] LABS: BASOPHILS % 0.7 % (0.0-1.0); EOSINOPHILS # (AUTO) 0.2 (0.0-0.4); EOSINOPHILS % 4.6 % (0.0-6.0); HEMATOCRIT 25.7 % (34.2-44.1); HEMOGLOBIN 8.2 g/dL (12.0-16.0); LYMPHOCYTES # (AUTO) 1.6 (1.0-3.2); LYMPHOCYTES % 35.5 % (18.0-39.1); MEAN CORPUSCULAR HEMOGLOBIN 29.2 pg (28-32); MEAN CORPUSCULAR HGB CONC 31.9 g/dL (31-35); MEAN CORPUSCULAR VOLUME 91.5 fL (81-99); MONOCYTES # (AUTO) 0.4 (0.2-0.8); MONOCYTES % 8.7 % (4.4-11.3); NEUTROPHILS # (AUTO) 2.2 (2.1-6.9); PLATELET COUNT 134 x10e3/uL (140-360); RED BLOOD COUNT 2.81 x10e6/uL (3.6-5.1); RED CELL DISTRIBUTION WIDTH 13.7 % (11.7-14.4)
[2022-04-24] MEDS: FAMOTIDINE 20 MG TAB PO SCH ×2 (09:00→15:42)
[2022-04-24] MEDS: CYANOCOBALAMIN 1,000 MCG TAB PO SCH (09:41)
[2022-04-24] MEDS: MULTIVITAMINS/MINERALS TAB PO SCH (09:41)
[2022-04-24] MEDS: DOCUSATE SODIUM 100 MG CAP PO SCH ×2 (09:41→16:15)
[2022-04-24] MEDS: SENNOSIDES 8.6 MG TAB PO SCH (09:41)
[2022-04-24] MEDS: FUROSEMIDE INJ 10 MG/ML 2 ML VIAL IV SCH (09:41)
[2022-04-24] MEDS: RIVAROXABAN 10 MG TABLET PO SCH (09:41)
[2022-04-24] MEDS: COLLAGENASE 5 GM TUBE TP SCH (09:42)
[2022-04-24] MEDS: PRAVASTATIN 20 MG TAB PO SCH (09:42)
[2022-04-24] MEDS: HYDROCHLOROTHIAZIDE 25 MG TAB PO SCH (09:45)
[2022-04-24] MEDS: Vancomycin IV 1 GM in SODIUM CHLORIDE 0.9% 250ML 250 ML IV SCH (15:42)
[2022-04-25] MEDS: SODIUM CHLORIDE 0.9% 1000ML 1,000 ML IV SCH ×6 (02:26→19:42)
[2022-04-25] MEDS: POTASSIUM CHLORIDE 20 MEQ TAB CR PO SCH (06:11)
[2022-04-25 06:37] LABS: BASOPHILS % 0.5 % (0.0-1.0); EOSINOPHILS # (AUTO) 0.2 (0.0-0.4); HEMATOCRIT 27.5 % (34.2-44.1); HEMOGLOBIN 8.1 g/dL (12.0-16.0); LYMPHOCYTES # (AUTO) 1.8 (1.0-3.2); LYMPHOCYTES % 45.5 % (18.0-39.1); MEAN CORPUSCULAR HEMOGLOBIN 28.4 pg (28-32); MEAN CORPUSCULAR HGB CONC 29.5 g/dL (31-35); MEAN CORPUSCULAR VOLUME 96.5 fL (81-99); MONOCYTES # (AUTO) 0.5 (0.2-0.8); MONOCYTES % 11.3 % (4.4-11.3); NEUTROPHILS # (AUTO) 1.5 (2.1-6.9); NEUTROPHILS % 37.4 % (38.7-80.0); PLATELET COUNT 166 x10e3/uL (140-360); RED BLOOD COUNT 2.85 x10e6/uL (3.6-5.1); RED CELL DISTRIBUTION WIDTH 13.4 % (11.7-14.4)
[2022-04-25 08:00] VITALS: BP 94/62
[2022-04-25 08:19] VITALS: BP 94/62
[2022-04-25] MEDS: HYDROCHLOROTHIAZIDE 25 MG TAB PO SCH (09:00)
[2022-04-25] MEDS: RIVAROXABAN 10 MG TABLET PO SCH (09:43)
[2022-04-25] MEDS: DOCUSATE SODIUM 100 MG CAP PO SCH ×2 (09:43→16:40)
[2022-04-25] MEDS: CYANOCOBALAMIN 1,000 MCG TAB PO SCH (09:43)
[2022-04-25] MEDS: COLLAGENASE 5 GM TUBE TP SCH (09:43)
[2022-04-25] MEDS: FAMOTIDINE 20 MG TAB PO SCH ×2 (09:43→16:40)
[2022-04-25] MEDS: MULTIVITAMINS/MINERALS TAB PO SCH (09:43)
[2022-04-25] MEDS: SENNOSIDES 8.6 MG TAB PO SCH (09:44)
[2022-04-25] MEDS: PRAVASTATIN 20 MG TAB PO SCH (09:44)
[2022-04-25] MEDS: FUROSEMIDE INJ 10 MG/ML 2 ML VIAL IV SCH (09:44)
[2022-04-25 12:24] VITALS: BP 116/61
[2022-04-25] MEDS: Vancomycin IV 1 GM in SODIUM CHLORIDE 0.9% 250ML 250 ML IV SCH (14:03)
[2022-04-25 17:27] VITALS: BP 112/72
[2022-04-25 20:00] VITALS: BP 107/60
[2022-04-26] VITALS (9 sets, daily range): BP systolic 112–150; BP diastolic 58–79
[2022-04-26] MEDS: SODIUM CHLORIDE 0.9% 1000ML 1,000 ML IV SCH ×4 (03:07→19:38)
[2022-04-26] MEDS: POTASSIUM CHLORIDE 20 MEQ TAB CR PO SCH (05:20)
[2022-04-26] MEDS: FAMOTIDINE 20 MG TAB PO SCH ×2 (07:30→17:28)
[2022-04-26] MEDS: COLLAGENASE 5 GM TUBE TP SCH (07:54)
[2022-04-26] MEDS: CYANOCOBALAMIN 1,000 MCG TAB PO SCH (09:00)
[2022-04-26] MEDS: PRAVASTATIN 20 MG TAB PO SCH (09:00)
[2022-04-26] MEDS: RIVAROXABAN 10 MG TABLET PO SCH (09:00)
[2022-04-26] MEDS: DOCUSATE SODIUM 100 MG CAP PO SCH ×2 (09:00→17:28)
[2022-04-26] MEDS: MULTIVITAMINS/MINERALS TAB PO SCH (09:00)
[2022-04-26] MEDS: SENNOSIDES 8.6 MG TAB PO SCH (09:00)
[2022-04-26] MEDS: FUROSEMIDE INJ 10 MG/ML 2 ML VIAL IV SCH (09:00)
[2022-04-26] MEDS: HYDROCHLOROTHIAZIDE 25 MG TAB PO SCH (09:00)
[2022-04-26] MEDS ORDERED: Vancomycin IV 1 GM VIAL ONE (12:28)
[2022-04-26] MEDS: Vancomycin IV 1 GM in SODIUM CHLORIDE 0.9% 250ML 250 ML IV SCH (15:00)
[2022-04-26] MEDS: HYDROCODONE/APAP 5MG-325MG TAB PO PRN (20:16)
[2022-04-27 04:00] VITALS: BP 133/71
[2022-04-27] MEDS: POTASSIUM CHLORIDE 20 MEQ TAB CR PO SCH (06:05)
[2022-04-27] MEDS: SODIUM CHLORIDE 0.9% 1000ML 1,000 ML IV SCH (06:07)
[2022-04-27] MEDS: RIVAROXABAN 10 MG TABLET PO SCH (08:10)
[2022-04-27] MEDS: CYANOCOBALAMIN 1,000 MCG TAB PO SCH (08:10)
[2022-04-27] MEDS: FAMOTIDINE 20 MG TAB PO SCH (08:10)
[2022-04-27] MEDS: MULTIVITAMINS/MINERALS TAB PO SCH (08:10)
[2022-04-27] MEDS: SENNOSIDES 8.6 MG TAB PO SCH (08:11)
[2022-04-27] MEDS: COLLAGENASE 5 GM TUBE TP SCH (08:11)
[2022-04-27] MEDS: DOCUSATE SODIUM 100 MG CAP PO SCH (08:11)
[2022-04-27] MEDS: PRAVASTATIN 20 MG TAB PO SCH (08:12)
[2022-04-27] MEDS: FUROSEMIDE INJ 10 MG/ML 2 ML VIAL IV SCH (08:12)
[2022-04-27] MEDS: HYDROCHLOROTHIAZIDE 25 MG TAB PO SCH (08:12)
[2022-04-27 08:26] VITALS: BP 123/69
[2022-04-27 08:55] VITALS: BP 123/69
[2022-04-27] MEDS ORDERED: MUPIROCIN 2% OINT 22 GM TUBE TOP ONE (11:45)
[2022-04-27 11:46] VITALS: BP 123/60
[2022-04-28] MEDS ORDERED: FUROSEMIDE 20 MG TAB PO SCH (09:00)
== END 2022-04-27 15:13 | DRG 463 ==
LOC: ER 16:16 → ERHOLD 19:25 → MED/SURG3 20:20
PROVIDERS: ADMIT Internal Medicine; ATTEND Internal Medicine
PROC: 02HV33Z Insertion of Infusion Device into Superior Vena Cava, Percutaneous Approach (ICD-10-PCS; 2022-04-09)
PROC: 0SBD0ZZ Excision of Left Knee Joint, Open Approach (ICD-10-PCS; 2022-04-21)
PROC: 0KXT0ZZ Transfer Left Lower Leg Muscle, Open Approach (ICD-10-PCS; 2022-04-21)
PROC: 0JRP07Z Replacement of Left Lower Leg Subcutaneous Tissue and Fascia with Autologous Tissue Substitute, Open Approach (ICD-10-PCS; 2022-04-21)
PROC: 0SPD0NZ Removal of Patellofemoral Synthetic Substitute from Left Knee Joint, Open Approach (ICD-10-PCS; principal; 2022-04-21 12:35)
PROC: 0JBM0ZZ Excision of Left Upper Leg Subcutaneous Tissue and Fascia, Open Approach (ICD-10-PCS; 2022-04-21 12:35)
DX: T84.54XA Infection and inflammatory reaction due to internal left knee prosthesis, initial encounter (principal); L89.154 Pressure ulcer of sacral region, stage 4; L89.524 Pressure ulcer of left ankle, stage 4; L89.894 Pressure ulcer of other site, stage 4; T81.32XA Disruption of internal operation (surgical) wound, not elsewhere classified, initial encounter; I50.32 Chronic diastolic (congestive) heart failure; E46 Unspecified protein-calorie malnutrition; Y79.2 Prosthetic and other implants, materials and accessory orthopedic devices associated with adverse incidents; K56.41 Fecal impaction; E78.5 Hyperlipidemia, unspecified; I11.0 Hypertensive heart disease with heart failure; B96.5 Pseudomonas (aeruginosa) (mallei) (pseudomallei) as the cause of diseases classified elsewhere; B95.62 Methicillin resistant Staphylococcus aureus infection as the cause of diseases classified elsewhere; B96.1 Klebsiella pneumoniae [K. pneumoniae] as the cause of diseases classified elsewhere; B96.89 Other specified bacterial agents as the cause of diseases classified elsewhere; R73.9 Hyperglycemia, unspecified; E87.8 Other disorders of electrolyte and fluid balance, not elsewhere classified; D69.59 Other secondary thrombocytopenia; Z68.24 Body mass index [BMI] 24.0-24.9, adult; Z20.822 Contact with and (suspected) exposure to COVID-19
CPT/HCPCS: 36415; 36569; 51700; 71045; 74177; 76000; 80048; 80053; 80061; 80202; 81001; 82040; 83036; 83605; 83735; 83880; 84132; 84155; 85014; 85018; 85025; 86850; 86900; 87040; 87071; 87075; 87186; 87205; 89051; 93005; 93925; 93970; 94799; 97605; 99251; 99284; J0690; J1100; J1644; J1940; J2001; J2370; J2405; J2543; J2710; J3010; J3370; J3480; J7030; J7050; Q9967

== ENCOUNTER 2022-06-19 10:02 | Emergency (ER) | payer MEDICARE ==
[~2022-06-19] VITALS: Ht 162.6 cm; Wt 64.0 kg
[2022-06-19] MEDS ORDERED: SODIUM CHLORIDE 0.9% 1000ML 1,000 ML IV STA (10:11)
[2022-06-19 11:18] LABS: BASOPHILS # (AUTO) 0.1 (0.0-0.1); BASOPHILS % 0.9 % (0.0-1.0); EOSINOPHILS # (AUTO) 0.4 (0.0-0.4); EOSINOPHILS % 5.9 % (0.0-6.0); HEMATOCRIT 39.2 % (34.2-44.1); HEMOGLOBIN 11.5 g/dL (12.0-16.0); LYMPHOCYTES # (AUTO) 2.5 (1.0-3.2); LYMPHOCYTES % 35.1 % (18.0-39.1); MEAN CORPUSCULAR HEMOGLOBIN 27.3 pg (28-32); MEAN CORPUSCULAR HGB CONC 29.3 g/dL (31-35); MEAN CORPUSCULAR VOLUME 93.1 fL (81-99); MONOCYTES # (AUTO) 0.4 (0.2-0.8); MONOCYTES % 5.7 % (4.4-11.3); NEUTROPHILS # (AUTO) 3.6 (2.1-6.9); PLATELET COUNT 172 x10e3/uL (140-360); RED BLOOD COUNT 4.21 x10e6/uL (3.6-5.1); RED CELL DISTRIBUTION WIDTH 14.1 % (11.7-14.4)
[2022-06-19 11:32] LABS: ALBUMIN 2.9 g/dL (3.5-5.0); ALBUMIN/GLOBULIN RATIO 0.7 (0.8-2.0); ANION GAP 16.5 mmol/L (8-16); CALCIUM 9.7 mg/dL (8.4-10.2); CREATININE, SERUM 0.82 mg/dL (0.57-1.11); POTASSIUM 3.5 mmol/L (3.5-5.1)
[2022-06-19] MEDS ORDERED: IOPAMIDOL 370 MG/ML 100 ML INFUS..BTL INJ ONE (12:11)
[2022-06-19] MEDS ORDERED: SODIUM CHLORIDE 0.9% 100 ML ONE (12:11)
[2022-06-19 12:20] LABS: CLARITY,URINE TURBID (CLEAR); COLOR,URINE YELLOW (YELLOW); KETONES,URINE NEGATIVE (NEGATIVE); LEUKOCYTE ESTERASE ,URINE MODERATE (NEGATIVE); NITRITE,URINE POSITIVE (NEGATIVE); PROTEIN,URINE DIPSTICK >=300 (NEGATIVE); URINE UROBILINOGEN 0.2 mg/dL (0.2 - 1)
[2022-06-19 12:25] LABS: BACTERIA,URINE MANY /HPF; EPITHELIAL CELLS,URINE FEW /LPF; RBC,URINE >50 /HPF (0-5); WBC,URINE (MAN) >50 /HPF (0-5)
[2022-06-19 12:32] LABS: EOSINOPHILS % (MANUAL) 10 % (0-7); LYMPHOCYTES % (MANUAL) 25 % (19-48); MONOCYTES % (MANUAL) 5 % (3.4-9.0); NEUTROPHILS % (MANUAL) 51 % (40-74); PLATELET ESTIMATE ADEQUATE
[2022-06-19 12:33] LABS: PLATELET MORPHOLOGY COMMENT NORMAL; RBC MORPHOLOGY COMMENT NORMAL
[2022-06-19] MEDS ORDERED: MIRALAX17 GM PO (13:31)
[2022-06-19 14:44] VITALS: BP 107/75
== END 2022-06-19 14:43 ==
LOC: ER 10:13
DX: R10.30 Lower abdominal pain, unspecified (principal); K59.00 Constipation, unspecified; L89.153 Pressure ulcer of sacral region, stage 3; I10 Essential (primary) hypertension
CPT/HCPCS: 36415; 71045; 74174; 80053; 81001; 83690; 84484; 85025; 87086; 87186; 93005; 99284; J7030; J7050; Q9967